=== PATIENT | male | born 1940 | race Caucasian/White ===

== ENCOUNTER → 2018-01-11 | Outpatient (CLI) | payer MEDICARE ==
--- NOTE | 2018-01-11 15:56 | US ---
EXAMINATION TYPE: US kidneys/renal and bladder DATE OF EXAM: 01/11/2018 COMPARISON: NONE CLINICAL HISTORY: R10.9 Right flank pain. EXAM MEASUREMENTS: Right Kidney: 11.5 x 4.8 x 4.8 cm Left Kidney: 15.0 x 4.8 x 5.4 cm There appears to be echogenic foci within the renal cortex could be related to some renal stones. No hydronephrosis is evident. Right Kidney: tiny echogenic foci with twinkle artifact measuring 0.2 x 0.1 x 0.3cm Left Kidney: Measures significantly larger, this may due to inferior mass seen. Vascular mass seen in ferior left kidney measuring 2.6 x 2.4 x 2.9cm. Simple cyst noted measuring 1.9 x 1.9 x 1.8cm. Bladder: some possible dependant debris IMPRESSION: 1. Findings suspicious for left 2.5 cm renal mass. Additional workup with contrast CT is recommended. 2. Possible right renal cortical stones without evidence of hydronephrosis.
== END | disposition home or self-care (01) ==
LOC: RADUSWWP 10:57
PROVIDERS: ATTEND Urology
DX: R93.422 Abnormal radiologic findings on diagnostic imaging of left kidney (principal); R93.421 Abnormal radiologic findings on diagnostic imaging of right kidney
CPT/HCPCS: 76770

== ENCOUNTER → 2018-01-22 | Outpatient (CLI) | payer MEDICARE ==
[2018-01-22 14:33] LABS: Blood Urea Nitrogen 23 mg/dL (9-20)
--- NOTE | 2018-01-22 15:38 | CT ---
EXAMINATION TYPE: CT abdomen wo/w con DATE OF EXAM: 01/22/2018 COMPARISON: Renal ultrasound January 11, 2018 HISTORY: Abnormal US. Renal mass. Original ultrasound for right flank pain. CT DLP: 2174 mGycm, Automated Exposure Control for Dose Reduction was Utilized. CONTRAST: CT scan of the abdomen is performed with oral and without and with IV Contrast, patient injected with 100 mL of Isovue M300. FINDINGS: LUNG BASES: There is suspected stent graft in the left circumflex artery axial image 1. There is seda tional coronary artery calcification RCA distribution. LIVER/GB: And central left hepatic dome there is 1.2 cm low dense lesion that shows peripheral nodula r enhancement, nonspecific too small to definitively characterize seen best axial image 17 series 6. Subcentimeter low dense lesion anteriorly left hepatic lobe series 6 image 27 is too small to charact erize. Somewhat Contracted gallbladder noted. PANCREAS: Mild to moderate generalized fat replaced atrophy of pancreas is seen. SPLEEN: No significant abnormality is seen. ADRENALS: No significant abnormality is seen. KIDNEYS: Noncontrast images show no renal calculi bilaterally. Postcontrast images show symmetric cor tical medullary uptake and excretion from both kidneys without evidence of hydronephrosis bilaterally . Corresponding to recent ultrasound there is partially exophytic heterogeneous enhancing solid mass anteriorly lower pole level left kidney measuring 5.0 x 4.1 cm axial series 10 image 43 by approximat cayla 5.5 cm craniocaudal dimension sagittal image 64. There is 1.6 cm simple appearing cyst posteriorl y mid to lower pole level left kidney axial image 41 series 10. No concerning right-sided renal mass or hydronephrosis is present. BOWEL: Oral contrast does not reach colonic level. Small hiatal hernia is seen. No suspicious small o r large bowel dilatation is noted. There is 4.0 cm mesenteric diverticulum along the second portion o f duodenum. LYMPH NODES: No greater than 1cm abdominal lymph nodes are appreciated. OSSEOUS STRUCTURES: There is moderate multilevel spurring in the visualized thoracolumbar spine. Ther e is multilevel disc space narrowing and vacuum disc phenomenon is prominent lumbosacral junction. Fa cet arthropathy lower lumbar levels is seen. OTHER: Fairly moderate calcified plaque of aorta extends into pelvic branch vessels. Slight ectasia b efore bifurcation is seen. No greater than 3 cm aneurysmal change is noted. IMPRESSION: CT findings confirm lower pole solid renal mass or neoplasm larger in size than was suspe cted on recent ultrasound.
== END | disposition home or self-care (01) ==
LOC: RADCTMAIN 13:56
PROVIDERS: ATTEND Urology
DX: N28.89 Other specified disorders of kidney and ureter (principal)
CPT/HCPCS: 82565; 84520; 74170; 36415; Q9967

== ENCOUNTER → 2018-01-28 | Outpatient (CLI) | payer MEDICARE ==
--- NOTE | 2018-01-28 17:33 | XR ---
EXAMINATION TYPE: XR chest 2V DATE OF EXAM: 01/28/2018 COMPARISON: Prior chest x-ray 11/07/2012 HISTORY: Follow up staging renal cancer TECHNIQUE: Frontal and lateral views of the chest are obtained. FINDINGS: There is no focal air space opacity, pleural effusion, or pneumothorax seen. The cardiac silhouette size is within normal limits. The osseous structures are intact. IMPRESSION: No acute cardiopulmonary process.
== END | disposition home or self-care (01) ==
LOC: RADXRMAIN 15:55
PROVIDERS: ATTEND Urology
DX: C64.9 Malignant neoplasm of unspecified kidney, except renal pelvis (principal)
CPT/HCPCS: 71046

== ENCOUNTER → 2018-02-13 | Outpatient (CLI) | payer MEDICARE ==
[2018-02-13 09:46] LABS: Basophils # (A) 0.1 k/uL (0-0.2); Basophils % (A) 1 %; Eosinophils # (A) 0.3 k/uL (0-0.7); Eosinophils % (A) 5 %; HCT 40.2 % (39.0-53.0); HGB 12.7 gm/dL (13.0-17.5); Lymphocytes % (A) 16 %; MCH 29.2 pg (25.0-35.0); MCHC 31.5 g/dL (31.0-37.0); MCV 92.7 fL (80.0-100.0); Mean Platelet Volume 6.4; Monocytes # (A) 0.6 k/uL (0-1.0); Monocytes % (A) 9 %; Neutrophils # (A) 4.3 k/uL (1.3-7.7); Neutrophils % (A) 67 %; Platelet Count 210 k/uL (150-450); RBC 4.34 m/uL (4.30-5.90); RDW 13.9 % (11.5-15.5); WBC 6.5 k/uL (3.8-10.6)
[2018-02-13 09:57] LABS: Anion Gap 11 mmol/L; Blood Urea Nitrogen 23 mg/dL (9-20); Calcium 9.4 mg/dL (8.4-10.2); Carbon Dioxide 26 mmol/L (22-30); Chloride 102 mmol/L (98-107); Glucose 132 mg/dL (74-99); Potassium 4.3 mmol/L (3.5-5.1); Sodium 139 mmol/L (137-145)
== END | disposition home or self-care (01) ==
LOC: LABPAT 09:04
PROVIDERS: ATTEND Urology
DX: Z01.818 Encounter for other preprocedural examination (principal); Z01.812 Encounter for preprocedural laboratory examination; R35.0 Frequency of micturition; E78.5 Hyperlipidemia, unspecified; D41.02 Neoplasm of uncertain behavior of left kidney; R10.9 Unspecified abdominal pain
CPT/HCPCS: 80048; 85025; 87086; 93005

== ENCOUNTER 2018-02-20 10:19 | Inpatient (IN) | payer MEDICARE ==
[2018-02-13 13:41] VITALS: BMI 31.5
--- NOTE | 2018-02-20 05:39 | P.GSHP ---
History of Present Illness H&P Date: 02/18/18 Chief Complaint: Left renal mass. The patient is a 77-year-old white male with known BPH. He has recently experienced right flank discomfort. A renal ultrasound showed tiny right renal calculi, but also showed a left renal mass. A CT scan confirmed the presence of a 5 cm left solid renal mass, suspicious for renal cell carcinoma. - Constitutional Constitutional: Denies weight loss - Gastrointestinal Gastrointestinal: Reports abdominal pain - Genitourinary (Female) Genitourinary: Reports urgency, Denies hematuria Past Medical History Past Medical History: Coronary Artery Disease (CAD), Cancer, GERD/Reflux, Hyperlipidemia, Hypertension, Prostate Disorder Additional Past Medical History / Comment(s): basal cell and melanoma skin cancer, seasonal allergies History of Any Multi-Drug Resistant Organisms: None Reported Past Surgical History: Heart Catheterization With Stent, Joint Replacement Additional Past Surgical History / Comment(s): rt hip replacement 2012, removal of basal cell and melanoma skin cancer Past Anesthesia/Blood Transfusion Reactions: No Reported Reaction Date of Last Stent Placement:: 09/09/17 Smoking Status: Former smoker - Past Family History Father Family Medical History: Cancer Additional Family Medical History / Comment(s): skin cancer Medications and Allergies Home Medications Medication Instructions Recorded Confirmed Type Aspirin [Adult Low Dose Aspirin EC] 81 mg PO HS 02/13/18 02/13/18 History Atorvastatin [Lipitor] 40 mg PO HS 02/13/18 02/13/18 History Clopidogrel Bisulfate [Plavix] 75 mg PO HS 02/13/18 02/13/18 History Finasteride [Proscar] 5 mg PO DAILY 02/13/18 02/13/18 History Glucosam/Cristofer-Msm1/C/Roly/Bosw 1 each PO DAILY 02/13/18 02/13/18 History [Glucosamine-Chondroitin Tablet] Losartan/Hydrochlorothiazide 1 each PO DAILY 02/13/18 02/13/18 History [Losartan-Hctz 50-12.5 mg Tab] Metoprolol Tartrate [Lopressor] 12.5 mg PO BID 02/13/18 02/13/18 History Omeprazole [PriLOSEC] 20 mg PO AC-BRKFST 02/13/18 02/13/18 History Tamsulosin [Flomax] 0.4 mg PO DAILY 02/13/18 02/13/18 History Vit C/E/Zn/Coppr/Lutein/Zeaxan 1 each PO DAILY 02/13/18 02/13/18 History [Preservision Areds 2 Softgel] diphenhydrAMINE [Benadryl] 25 mg PO HS 02/13/18 02/13/18 History Allergies Allergy/AdvReac Type Severity Reaction Status Date / Time No Known Allergies Allergy Verified 02/13/18 13:23 Surgical - Exam - General well developed, well nourished, no distress - Neck no masses, trachea midline lymphadenopathy: absent - Respiratory normal respiratory effort, clear to auscultation - Cardiovascular Rhythm: regular - Abdomen Abdomen: soft, non tender, no guarding, no rigid, no rebound - Genitourinary normal penis with no external lesions, testicles non-tender - Rectum Rectum: normal sphincter tone, no masses - Musculoskeletal normal gait - Psychiatric oriented to time, oriented to person, oriented to place, speech is normal, memory intact Results - Imaging CT scan - abdomen: report reviewed, image reviewed Assessment and Plan (1) Neoplasm of uncertain behavior of left kidney Status: Acute Code(s): D41.02 - NEOPLASM OF UNCERTAIN BEHAVIOR OF LEFT KIDNEY SNOMED Code(s): 09532480 Plan: Left radical nephrectomy. The rationale for the procedure was reviewed in detail with the patient, as he understands that the mass likely represents renal cell carcinoma. Referral for a laparoscopic procedure was offered, but he instead has chosen to undergo an open procedure. The anticipated perioperative course was discussed, as were potential risks. These include anesthesia, bleeding, infection, bowel injury, splenic injury, prolonged paralytic ileus, and incisional hernia. He has been cleared by Dr. Rivera, but he will continue to receive aspirin perioperatively. Plavix will be resumed as soon as it is felt to be safe postoperatively.
[~2018-02-20 10:19] MED LIST: HYDROmorphone 0.5 MG/0.5 ML SYRINGE IVP PRN; ONDANSETRON 4 MG/2 ML VIAL IVP ONE; ceFAZolin IN SWFI 2 GM/20 ML SYRINGE IVP ONE; fentaNYL (PF) 50 MCG/ML 2 ML AMP IV PRN
[2018-02-20] MEDS ORDERED: MIDAZOLAM 2 MG/2 ML VIAL ONE ×2 (10:51→12:40)
[2018-02-20] MEDS: LACTATED RINGERS 1,000 ML IV SCH ×2 (10:52→17:04)
[2018-02-20] MEDS ORDERED: LIDOCAINE 1% 20 ML VIAL (10MG/ML) FOR IV START INTRADERMA ONE (10:53)
[2018-02-20] MEDS ORDERED: MIDAZOLAM 2 MG/2 ML VIAL IV ONE (11:05)
[2018-02-20] MEDS ORDERED: NEOSTIGMINE 1 MG/ML 10 ML VIAL ONE (12:40)
[2018-02-20] MEDS ORDERED: ROCURONIUM BROMIDE 10 MG/ML 10 ML VIAL IV ONE (12:40)
[2018-02-20] MEDS ORDERED: fentaNYL (PF) 50 MCG/ML 2 ML AMP ONE (12:40)
[2018-02-20] MEDS ORDERED: LIDOCAINE 1% INJ 10MG/ML (20 ML MDV) ONE (12:40)
[2018-02-20] MEDS ORDERED: ePHEDrine SULFATE/0.9% NACL/PF 50 MG/5 ML SYRINGE IV ONE (12:40)
[2018-02-20] MEDS ORDERED: PROPOFOL 10 MG/ML 20 ML VIAL IV ONE (12:40)
[2018-02-20] MEDS ORDERED: GLYCOPYRROLATE 0.2 MG/ML 2 ML VIAL ONE (12:40)
[2018-02-20] MEDS ORDERED: SUCCINYLCHOLINE CHLORIDE 100 MG/5 ML SYR IV ONE (12:40)
[2018-02-20] MEDS ORDERED: LACTATED RINGERS 1,000 ML IV ONE ×2 (13:07→14:15)
[2018-02-20] MEDS ORDERED: NALOXONE 0.4 MG/ML 1 ML VIAL IV PRN ×2 (14:37→14:38)
--- NOTE | 2018-02-20 15:18 | P.OP ---
Date of Procedure: 02/20/18 Preoperative Diagnosis: Left renal mass Postoperative Diagnosis: Same Procedure(s) Performed: Left radical nephrectomy Anesthesia: GETA, epidural Surgeon: Osmin Avina Assistant Golf Professional #1: Vj Castaneda Estimated Blood Loss (ml): 250 IV fluids (ml): 1,700 Pathology: other (Left Kidney) Condition: stable Disposition: PACU Indications for Procedure: The patient is a 77-year-old white male with known BPH. He has recently experienced right flank discomfort. A renal ultrasound showed tiny right renal calculi, but also showed a left renal mass. A CT scan confirmed the presence of a 5 cm left solid renal mass, suspicious for renal cell carcinoma. Operative Findings: No evidence of extrarenal disease. Description of Procedure: The patient was taken to the operating room and placed in the supine position. After being given general anesthesia, the abdomen was prepped and draped sterilely. A left-sided chevron incision was made using the scalpel. The Bovie electrocautery was used to incise the subcutaneous tissues and muscular layers of the abdominal wall down to the peritoneum. The abdominal wall muscles were noted to be thin and atrophic. The peritoneum was then carefully entered, and opened the full length of the incision. The abdomen was examined, and no abnormalities were noted other than the renal mass. Specifically, there was no evidence of malignancy elsewhere within the abdomen. The Bookwalter retractor was used for exposure. The peritoneum was incised at the line of Toldt, and the left hemicolon was mobilized and the lienocolic attachments were divided. This allowed the colon to be mobilized medially, off of the kidney, exposing the lateral aspect of the aorta. The left renal vein was identified and isolated. The adrenal vein was ligated and divided. Dissection was performed along the lateral aspect of the aorta, cephalad and caudal to the left renal vein. This lymphoadipose and sympathetic tissue was clipped and divided. The single left renal artery was identified, isolated, and ligated using a 2-0 silk tie. The left renal vein was then ligated using 2-0 silk ties, proximally and distally, and a 2-0 silk suture ligature was placed proximally as well. The renal vein was then divided. The left renal artery was then likewise ligated twice proximally and once distally prior to dividing it. Dissection was then continued inferiorly, alongside the aorta, with lymphoadipose tissue clipped and divided. The posterior dissection was then performed bluntly, and the tail of Gerota's fascia was then isolated. Within it where the gonadal vein and the ureter. These were ligated distally and clipped proximally prior to dividing them. The posterior dissection was then completed, alongside the psoas muscle, leaving only the superior attachments. The decision was made to preserve the adrenal gland. Therefore, the peritoneum was incised just below the adrenal gland, and the superior attachments were clipped and divided. It should be noted that there was no evidence of adenopathy. Once all attachments were divided, the specimen was removed. The surgical field was examined for hemostasis. Some oozing was noted from the superior attachments, and these areas were identified and either clipped or cauterized, attaining excellent hemostasis. The Bookwalter retractor was removed. The abdominal contents were allowed to return to their normal location. Each individual muscle layer of the anterior abdominal wall was closed using #1 Vicryl suture in a running fashion. Hemostasis within the subcutaneous tissues was excellent. The skin was closed using dianne. A sterile gauze dressing was applied over the incision. All sponge and needle counts were correct. The patient tolerated the procedure well was taken to the recovery room in stable condition.
[2018-02-20] MEDS ORDERED: HYDROmorphone 1 MG/ML 1 ML SYRINGE IVP PRN (15:20)
[2018-02-20] MEDS ORDERED: MAG HYDROX/AL HYDROX/SIMETH 30 ML CUP PO PRN (15:20)
[2018-02-20] MEDS: ROPIVACAINE 250 MG, HYDROMORPHONE (PF) 5 MG in SODIUM CHLORIDE 0.9% 200 ML EPIDURAL PRN (16:04)
[2018-02-20] MEDS: ONDANSETRON 4 MG/2 ML VIAL IVP PRN (17:29)
[2018-02-20] MEDS: DEXTROSE 5%-0.45% NACL 1,000 ML IV SCH (18:48)
[2018-02-20] MEDS: ASPIRIN 81 MG PO SCH (21:24)
[2018-02-20] MEDS: ATORVASTATIN 40 MG TAB PO SCH (21:24)
[2018-02-20] MEDS: HEPARIN SODIUM,PORCINE 5,000 UNIT/ML 1 ML VIAL SQ SCH (21:24)
[2018-02-20] MEDS: METOPROLOL TARTRATE 12.5 MG TAB PO SCH (21:24)
[2018-02-21] MEDS: DEXTROSE 5%-0.45% NACL 1,000 ML IV SCH ×3 (03:29→16:03)
[2018-02-21] MEDS: ONDANSETRON 4 MG/2 ML VIAL IVP PRN ×2 (05:49→14:41)
[2018-02-21 07:39] LABS: Basophils % (A) 0 %; Eosinophils % (A) 0 %; HCT 36.9 % (39.0-53.0); Lymphocytes # (A) 0.4 k/uL (1.0-4.8); Lymphocytes % (A) 3 %; MCH 30.7 pg (25.0-35.0); MCHC 32.4 g/dL (31.0-37.0); MCV 94.7 fL (80.0-100.0); Mean Platelet Volume 6.5; Monocytes % (A) 7 %; Neutrophils # (A) 13.5 k/uL (1.3-7.7); Neutrophils % (A) 90 %; Platelet Count 208 k/uL (150-450); RDW 13.4 % (11.5-15.5); WBC 15.1 k/uL (3.8-10.6)
[2018-02-21] MEDS: HEPARIN SODIUM,PORCINE 5,000 UNIT/ML 1 ML VIAL SQ SCH ×2 (08:31→20:34)
[2018-02-21] MEDS: METOPROLOL TARTRATE 12.5 MG TAB PO SCH ×2 (08:31→20:34)
[2018-02-21] MEDS: TAMSULOSIN 0.4 MG CAP.ER.24H PO SCH (08:31)
[2018-02-21] MEDS: FINASTERIDE 5 MG TAB PO SCH (08:32)
[2018-02-21] MEDS: PANTOPRAZOLE 40 MG TABLET PO SCH (08:32)
[2018-02-21] MEDS: LOSARTAN-HCTZ 50-12.5 MG 1 EACH TAB PO SCH (08:32)
--- NOTE | 2018-02-21 09:39 | P.PN ---
Progress Note - Text Date: 02/21/2018 Time: 717 The patient is status post, left radical nephrectomy, postoperative day number 1 The patient has no complaints of nausea vomiting or headache. The patient does not complain of any lower extremity numbness or weakness. The epidural is running at 6 mL per hour. VAS 0-10. The epidural will be maintained and adjusted as needed.
[2018-02-21] MEDS: LACTATED RINGERS 1,000 ML IV SCH (12:30)
[2018-02-21] MEDS: diphenhydrAMINE 50 MG CAP PO PRN (13:19)
[2018-02-21] MEDS: ATORVASTATIN 40 MG TAB PO SCH (20:34)
[2018-02-21] MEDS: ASPIRIN 81 MG PO SCH (20:34)
--- NOTE | 2018-02-21 22:00 | P.PN ---
Subjective Progress Note Date: 02/21/18 Principal diagnosis: POD #1, s/p left radical nephrectomy. Patient reports nausea, mild dizziness. He denies SOB. He was recently noted to have hematuria; the urine was previously clear. Objective - Vital Signs Vital signs: Vital Signs Temp 99.0 F 02/21/18 19:55 Pulse 62 02/21/18 19:55 Resp 16 02/21/18 19:55 BP 125/67 02/21/18 19:55 Pulse Ox 96 02/21/18 19:55 Intake & Output 02/21/18 02/21/18 02/22/18 06:59 18:59 06:59 Intake Total 1600 975 Output Total 400 Balance 1200 975 Intake: Intake, IV Titration 1500 875 Amount Dextrose 5%-0.45% NaCl 1, 1500 875 000 ml @ 125 mls/hr IV . Q8H [facility] Rx#:[id number] Oral 100 100 Output: Urine 400 Other: Voiding Method Indwelling Catheter Indwelling Catheter - Constitutional General appearance: Present: cooperative, no acute distress - Gastrointestinal Gastrointestinal Comment(s): Soft, non-distended. Dressing dry and intact. - Labs CBC & Chem 7: 02/21/18 07:06 Labs: Abnormal Lab Results - Last 24 Hours (Table) 02/21/18 Range/Units 07:06 WBC 15.1 H (3.8-10.6) k/uL RBC 3.90 L (4.30-5.90) m/uL Hgb 12.0 L (13.0-17.5) gm/dL Hct 36.9 L (39.0-53.0) % Neutrophils # 13.5 H (1.3-7.7) k/uL Lymphocytes # 0.4 L (1.0-4.8) k/uL Assessment and Plan (1) Neoplasm of uncertain behavior of left kidney Current Visit: No Status: Acute Code(s): D41.02 - NEOPLASM OF UNCERTAIN BEHAVIOR OF LEFT KIDNEY SNOMED Code(s): 77055172 Plan: Patient is stable. Continue current treatment. Will irrigate Romero prn. Anticipate removal of epidural catheter and Romero in am.
[2018-02-21] MEDS: ROPIVACAINE 250 MG, HYDROMORPHONE (PF) 5 MG in SODIUM CHLORIDE 0.9% 200 ML EPIDURAL PRN (22:52)
[2018-02-22] MEDS: DEXTROSE 5%-0.45% NACL 1,000 ML IV SCH ×4 (00:34→16:58)
[2018-02-22] MEDS: diphenhydrAMINE 50 MG CAP PO PRN (01:04)
[2018-02-22 06:54] LABS: Basophils % (A) 0 %; Eosinophils % (A) 0 %; HCT 34.2 % (39.0-53.0); HGB 11.1 gm/dL (13.0-17.5); Lymphocytes # (A) 0.5 k/uL (1.0-4.8); Lymphocytes % (A) 4 %; MCH 30.7 pg (25.0-35.0); MCHC 32.6 g/dL (31.0-37.0); MCV 94.3 fL (80.0-100.0); Mean Platelet Volume 7.4; Monocytes % (A) 8 %; Neutrophils # (A) 11.6 k/uL (1.3-7.7); Neutrophils % (A) 87 %; Platelet Count 174 k/uL (150-450); RBC 3.62 m/uL (4.30-5.90); RDW 13.5 % (11.5-15.5); WBC 13.3 k/uL (3.8-10.6)
--- NOTE | 2018-02-22 08:35 | P.PN ---
Progress Note - Text 02-22-2018 845am 77 y/o M s/p Radical Nephrectomy POD 2 Solution was @ 5ml /hr VAS 0/10 no motor or sensory deficits Epidural Dc'd
[2018-02-22] MEDS: PANTOPRAZOLE 40 MG TABLET PO SCH (08:53)
[2018-02-22] MEDS: METOPROLOL TARTRATE 12.5 MG TAB PO SCH ×2 (08:53→19:59)
[2018-02-22] MEDS: TAMSULOSIN 0.4 MG CAP.ER.24H PO SCH (08:53)
[2018-02-22] MEDS: FINASTERIDE 5 MG TAB PO SCH (08:54)
[2018-02-22] MEDS: CLOPIDOGREL 75 MG TAB PO SCH (08:54)
[2018-02-22] MEDS: LOSARTAN-HCTZ 50-12.5 MG 1 EACH TAB PO SCH (08:54)
[2018-02-22] MEDS: LACTATED RINGERS 1,000 ML IV SCH (12:09)
[2018-02-22] MEDS ORDERED: HYDROcodone/APAP 5-325MG 1 EACH TAB PO PRN ×2 (14:26)
[2018-02-22] MEDS ORDERED: ACETAMINOPHEN TAB 325 MG TAB PO PRN (14:26)
[2018-02-22] MEDS: ATORVASTATIN 40 MG TAB PO SCH (19:59)
[2018-02-22] MEDS: ASPIRIN 81 MG PO SCH (20:00)
[2018-02-22] MEDS ORDERED: CALCIUM CARBONATE 500 MG CHEWABLE PO PRN (20:02)
[2018-02-23 07:20] LABS: Basophils % (A) 0 %; Eosinophils % (A) 0 %; HCT 33.5 % (39.0-53.0); HGB 11.1 gm/dL (13.0-17.5); Lymphocytes # (A) 0.3 k/uL (1.0-4.8); Lymphocytes % (A) 3 %; MCH 30.4 pg (25.0-35.0); MCHC 33.3 g/dL (31.0-37.0); MCV 91.4 fL (80.0-100.0); Mean Platelet Volume 6.6; Monocytes # (A) 0.6 k/uL (0-1.0); Monocytes % (A) 6 %; Neutrophils # (A) 9.1 k/uL (1.3-7.7); Neutrophils % (A) 89 %; Platelet Count 181 k/uL (150-450); RBC 3.66 m/uL (4.30-5.90); RDW 13.3 % (11.5-15.5); WBC 10.2 k/uL (3.8-10.6)
[2018-02-23 07:41] LABS: Calcium 8.1 mg/dL (8.4-10.2); Potassium 3.9 mmol/L (3.5-5.1)
[2018-02-23] MEDS: FINASTERIDE 5 MG TAB PO SCH (08:03)
[2018-02-23] MEDS: TAMSULOSIN 0.4 MG CAP.ER.24H PO SCH (08:03)
[2018-02-23] MEDS: LOSARTAN-HCTZ 50-12.5 MG 1 EACH TAB PO SCH (08:03)
[2018-02-23] MEDS: PANTOPRAZOLE 40 MG TABLET PO SCH (08:04)
[2018-02-23] MEDS: CLOPIDOGREL 75 MG TAB PO SCH (08:04)
[2018-02-23] MEDS: METOPROLOL TARTRATE 12.5 MG TAB PO SCH ×2 (08:04→20:07)
[2018-02-23] MEDS: DEXTROSE 5%-0.45% NACL 1,000 ML IV SCH ×3 (08:05→20:08)
[2018-02-23] MEDS: LACTATED RINGERS 1,000 ML IV SCH (10:17)
--- NOTE | 2018-02-23 11:54 | P.PN ---
Progress Note - Text Progress Note Date: 02/23/18 The patient developed urinary retention yesterday, requiring Romero catheter placement. Because of the catheter, he has not ambulated. His dizziness has resolved. He is tolerating clear liquid diet and is hungry. He has passed flatus but has not had a bowel movement. He is afebrile with stable vital signs. The incision is clean and dry. He appears to have a skin burn, resulting from tape, lateral to the flank incision. He is hoping to be discharged home later today. His IV will be saline locked, his diet will be advanced, and his Romero catheter will be connected to a leg bag. Pathologically , the tumor was confirmed to be renal cell carcinoma, confined to the kidney. This was discussed with the patient and his family, and adjuvant therapy will not be recommended.
[2018-02-23] MEDS: BACITRACIN 500 UNIT/GM OINT 28.4 GM TUBE TOPICAL SCH ×2 (12:56→20:07)
[2018-02-23 14:17] VITALS: RESP 16
[2018-02-23] MEDS: ASPIRIN 81 MG PO SCH (20:07)
[2018-02-23] MEDS: ATORVASTATIN 40 MG TAB PO SCH (20:07)
[2018-02-23] MEDS: diphenhydrAMINE 50 MG CAP PO PRN (21:36)
[2018-02-24 07:07] VITALS: BP 150/68; PULSE 75; TEMP 97.7
[2018-02-24] MEDS: DEXTROSE 5%-0.45% NACL 1,000 ML IV SCH (08:36)
[2018-02-24] MEDS: METOPROLOL TARTRATE 12.5 MG TAB PO SCH (08:47)
[2018-02-24] MEDS: FINASTERIDE 5 MG TAB PO SCH (08:47)
[2018-02-24] MEDS: CLOPIDOGREL 75 MG TAB PO SCH (08:47)
[2018-02-24] MEDS: PANTOPRAZOLE 40 MG TABLET PO SCH (08:47)
[2018-02-24] MEDS: LOSARTAN-HCTZ 50-12.5 MG 1 EACH TAB PO SCH (08:47)
[2018-02-24] MEDS: BACITRACIN 500 UNIT/GM OINT 28.4 GM TUBE TOPICAL SCH (08:51)
--- NOTE | 2018-02-24 10:01 | P.DS ---
Providers Date of admission: 02/20/18 10:19 Expected date of discharge: 02/24/18 Attending physician: Osmin Avina Primary care physician: Blayne Fuller - Discharge Diagnosis(es) (1) Renal cell carcinoma of left kidney Current Visit: Yes Status: Acute Hospital Course: On the day of admission, the patient underwent an uncomplicated left radical nephrectomy. Postoperatively, he reported some dizziness which was attributed to the epidural catheter. He also reported nausea in the early postoperative period. He remained afebrile. The epidural catheter and Romero catheter were both removed on the second postoperative day. He was unable to void, necessitating replacement of the Romero catheter. Plavix was resumed after the epidural catheter was removed. At the time of discharge, he was passing flatus and tolerating diet. He was ambulating without difficulty. The incision was clean and dry. A dressing was applied over a tape burn lateral to the surgical incision. Pathologically, the tumor was confirmed to be organ confined renal cell carcinoma ([id number]), which will not require any adjuvant therapy. Procedures: Left radical nephrectomy on 02/20/2018. Patient Condition at Discharge: Good Plan - Discharge Summary Discharge Rx Participant: Yes New Discharge Prescriptions: New Hydrocodone/Acetaminophen [Gilman 5-325] 1 - 2 each PO Q4HR PRN #6 tab PRN Reason: Pain No Action Clopidogrel Bisulfate [Plavix] 75 mg PO HS Aspirin [Adult Low Dose Aspirin EC] 81 mg PO HS Metoprolol Tartrate [Lopressor] 12.5 mg PO BID Tamsulosin [Flomax] 0.4 mg PO DAILY Losartan/Hydrochlorothiazide [Losartan-Hctz 50-12.5 mg Tab] 1 tab PO DAILY Finasteride [Proscar] 5 mg PO DAILY Atorvastatin [Lipitor] 40 mg PO HS Omeprazole [PriLOSEC] 20 mg PO AC-BRKFST diphenhydrAMINE [Benadryl] 25 mg PO HS Vit C/E/Zn/Coppr/Lutein/Zeaxan [Preservision Areds 2 Softgel] 1 cap PO DAILY Glucosam/Cristofer-Msm1/C/Roly/Bosw [Glucosamine-Chondroitin Tablet] 1 tab PO DAILY Discharge Medication List Aspirin [Adult Low Dose Aspirin EC] 81 mg PO HS 02/13/18 [History] Atorvastatin [Lipitor] 40 mg PO HS 02/13/18 [History] Clopidogrel Bisulfate [Plavix] 75 mg PO HS 02/13/18 [History] Finasteride [Proscar] 5 mg PO DAILY 02/13/18 [History] Glucosam/Cristofer-Msm1/C/Roly/Bosw [Glucosamine-Chondroitin Tablet] 1 tab PO DAILY 02/13/18 [History] Losartan/Hydrochlorothiazide [Losartan-Hctz 50-12.5 mg Tab] 1 tab PO DAILY 02/13 [History] Metoprolol Tartrate [Lopressor] 12.5 mg PO BID 02/13/18 [History] Omeprazole [PriLOSEC] 20 mg PO AC-BRKFST 02/13/18 [History] Tamsulosin [Flomax] 0.4 mg PO DAILY 02/13/18 [History] Vit C/E/Zn/Coppr/Lutein/Zeaxan [Preservision Areds 2 Softgel] 1 cap PO DAILY 10/26 [History] diphenhydrAMINE [Benadryl] 25 mg PO HS 02/13/18 [History] Hydrocodone/Acetaminophen [Gilman 5-325] 1 - 2 each PO Q4HR PRN #6 tab 02/23/18 [ Rx] Follow up Appointment(s)/Referral(s): Osmin Avina MD [STAFF PHYSICIAN] - 02/27/18 Activity/Diet/Wound Care/Special Instructions: Discharge home with Romero catheter. Provide patient with both an overnight bag and a urinary leg bag. Diet as tolerated. Okay to shower. No lifting, driving , or strenuous activity. Patient was instructed to remove his Romero catheter early in the morning February 27, and follow-up that afternoon. Discharge Disposition: HOME SELF-CARE
[2018-02-24] MEDS: TAMSULOSIN 0.4 MG CAP.ER.24H PO SCH (10:51)
== END 2018-02-24 11:52 | disposition home or self-care (01) | DRG 658 ==
LOC: 2ORMAIN 10:19 → 3SUR 15:13
PROVIDERS: ADMIT Urology; ATTEND Urology
PROC: 0TT10ZZ Resection of Left Kidney, Open Approach (ICD-10-PCS; principal; 2018-02-20 12:00)
DX: C64.2 Malignant neoplasm of left kidney, except renal pelvis (principal); E78.5 Hyperlipidemia, unspecified; I10 Essential (primary) hypertension; I25.10 Atherosclerotic heart disease of native coronary artery without angina pectoris; K21.9 Gastro-esophageal reflux disease without esophagitis; N40.1 Benign prostatic hyperplasia with lower urinary tract symptoms; R33.8 Other retention of urine; J30.2 Other seasonal allergic rhinitis; R42 Dizziness and giddiness; N20.0 Calculus of kidney; R11.0 Nausea; T50.995A Adverse effect of other drugs, medicaments and biological substances, initial encounter; Z79.82 Long term (current) use of aspirin; Z79.02 Long term (current) use of antithrombotics/antiplatelets; Z79.899 Other long term (current) drug therapy; Z96.641 Presence of right artificial hip joint; Z87.891 Personal history of nicotine dependence; Z85.820 Personal history of malignant melanoma of skin; Z85.828 Personal history of other malignant neoplasm of skin; Z95.5 Presence of coronary angioplasty implant and graft; Z80.8 Family history of malignant neoplasm of other organs or systems; Y92.239 Unspecified place in hospital as the place of occurrence of the external cause
CPT/HCPCS: 36415; 80048; 85025; 86850; 86900; 86901; 88307

== ENCOUNTER → 2018-02-27 | Outpatient (CLI) | payer MEDICARE ==
--- NOTE | 2018-02-27 17:19 | US ---
EXAMINATION TYPE: US venous doppler duplex LE RT DATE OF EXAM: 02/27/2018 4:23 PM COMPARISON: NONE CLINICAL HISTORY: C64.9 Renal cancer; right leg swelling. Right leg swelling, history of renal CA SIDE PERFORMED: Right TECHNIQUE: The lower extremity deep venous system is examined utilizing real time linear array sonog toro with graded compression, doppler sonography and color-flow sonography. VESSELS IMAGED: External Iliac Vein (EIV) Common Femoral Vein Deep Femoral Vein Greater Saphenous Vein * Femoral Vein Popliteal Vein Small Saphenous Vein * Proximal Calf Veins (* superficial vessels) Right Leg: Appears negative for DVT IMPRESSION: No evidence of deep venous thrombosis in the right leg.
== END | disposition home or self-care (01) ==
LOC: RADUSWWP 16:16
PROVIDERS: ATTEND Urology
DX: R60.0 Localized edema (principal); C64.9 Malignant neoplasm of unspecified kidney, except renal pelvis

== ENCOUNTER → 2018-11-27 | Outpatient (CLI) | payer MEDICARE ==
--- NOTE | 2018-11-27 15:57 | XR ---
EXAMINATION TYPE: XR chest 2V DATE OF EXAM: 11/27/2018 COMPARISON: Prior chest x-ray 01/28/2018 HISTORY: Renal carcinoma staging TECHNIQUE: Frontal and lateral views of the chest are obtained. FINDINGS: There is no focal air space opacity, pleural effusion, or pneumothorax seen. The cardiac silhouette size is stable, borderline enlarged, patient is rotated. The osseous structures are inta ct. IMPRESSION: No acute cardiopulmonary process.
== END | disposition home or self-care (01) ==
LOC: RADXRMAIN 10:31
PROVIDERS: ATTEND Urology
DX: D49.519 Neoplasm of unspecified behavior of unspecified kidney (principal)
CPT/HCPCS: 71046

== ENCOUNTER → 2019-01-30 | Outpatient (CLI) | payer MEDICARE ==
[2019-01-30 10:31] LABS: Albumin 3.9 g/dL (3.5-5.0); Calcium 9.2 mg/dL (8.4-10.2); Potassium 4.6 mmol/L (3.5-5.1); Total Bilirubin 0.5 mg/dL (0.2-1.3); Total Protein 6.4 g/dL (6.3-8.2)
--- NOTE | 2019-01-30 14:15 | XR ---
EXAMINATION TYPE: XR chest 2V DATE OF EXAM: 01/30/2019 COMPARISON: Prior chest x-ray 11/27/2018 HISTORY: Left kidney cancer, C 64.2 TECHNIQUE: Frontal and lateral views of the chest are obtained. FINDINGS: The patient is rotated. There is no focal air space opacity, pleural effusion, or pneumotho rax seen. The cardiac silhouette size is stable accounting for differences in technique. There are coronary artery calcifications. The osseous structures are intact. IMPRESSION: No acute cardiopulmonary process. Coronary artery disease
--- NOTE | 2019-01-30 14:36 | CT ---
EXAMINATION TYPE: CT abdomen wo con DATE OF EXAM: 01/30/2019 HISTORY: Left kidney cancer CT DLP: 756.40 mGycm. Automated Exposure Control for Dose Reduction was Utilized. TECHNIQUE: CT scan of the abdomen is performed with oral but without IV contrast. COMPARISON: CT abdomen January 12, 2018 FINDINGS: Within the limitations of a non-contrast study, the following observations are made. LUNG BASES: No significant abnormality is appreciated. LIVER/GB: No significant abnormality is appreciated. PANCREAS: Without generalized fat replaced atrophy. SPLEEN: No significant abnormality is seen. ADRENALS: Left adrenal gland remains present. KIDNEYS: Left-sided nephrectomy changes are now present. No suspicious residual solid mass. BOWEL: There is 2.6 cm duodenal diverticulum medial second portion coronal image 45 redemonstrated. L eft-sided colonic diverticulosis redemonstrated. LYMPH NODES: No greater than 1cm abdominal lymph nodes are appreciated. OSSEOUS STRUCTURES: Moderate multilevel spurring of the spine. There is a hemangioma involving the ri ght aspect T9 vertebra. OTHER: Mild to moderate calcified plaque of the aorta extends into branch vessels. Slight ectasia red emonstrated without greater than 3.0 cm aneurysm. IMPRESSION: Interval left-sided total nephrectomy. No new suspicious mass or adenopathy.
== END | disposition home or self-care (01) ==
LOC: RADCTMAIN 09:43
PROVIDERS: ATTEND Urology
DX: I25.10 Atherosclerotic heart disease of native coronary artery without angina pectoris (principal); C64.2 Malignant neoplasm of left kidney, except renal pelvis; Z90.5 Acquired absence of kidney
CPT/HCPCS: 36415; 71046; 74150; 80053

== ENCOUNTER → 2019-10-07 | Outpatient (CLI) | payer MEDICARE ==
--- NOTE | 2019-10-07 08:50 | XR ---
EXAMINATION TYPE: XR chest 2V DATE OF EXAM: 10/07/2019 COMPARISON: 01/30/2019 HISTORY: 78-year-old male C64.2, E78.2 TECHNIQUE: Frontal and lateral views FINDINGS: Heart normal size. Mild elongation thoracic aorta. Mild strandy atelectasis lower lungs. No consolida tion or pleural effusion. IMPRESSION: Some strandy lower lung atelectasis.
[2019-10-07 16:20] LABS: Chol/HDL Ratio 3.63; LDL Cholesterol,Calculated 76.2 mg/dL (0.0-131.0); VLDL Calculation 31.8 mg/dL (5.00-40.00)
== END | disposition home or self-care (01) ==
LOC: LABWHC1 08:27
PROVIDERS: ATTEND Internal Medicine Interventional Cardiology
DX: J98.11 Atelectasis (principal); C64.2 Malignant neoplasm of left kidney, except renal pelvis; E78.2 Mixed hyperlipidemia
CPT/HCPCS: 36415; 71046; 80061; 84450; 84460

== ENCOUNTER → 2020-01-15 | Outpatient (CLI) | payer MEDICARE ==
[2020-01-15 09:09] LABS: Albumin 4.1 g/dL (3.5-5.0); Calcium 8.9 mg/dL (8.4-10.2); Potassium 4.9 mmol/L (3.5-5.1); Total Bilirubin 0.6 mg/dL (0.2-1.3); Total Protein 6.4 g/dL (6.3-8.2)
--- NOTE | 2020-01-15 13:00 | CT ---
EXAMINATION TYPE: CT abdomen wo con DATE OF EXAM: 01/15/2020 COMPARISON: CT abdomen 01/30/2019 HISTORY: Left renal cancer status post left nephrectomy and CT DLP: 615 mGycm Automated exposure control for dose reduction was used. TECHNIQUE: Helical acquisition of images was performed from the lung bases through the top of iliac crest to include entire abdomen. CONTRAST: Performed with Oral Contrast and without IV contrast. FINDINGS: LUNG BASES: Lung bases are clear. Heart size normal. Calcified coronary artery disease. No pericardia l or pleural effusion. LIVER/GB: Liver is normal in attenuation and size. No intrahepatic or extrahepatic biliary ductal dil atation. PANCREAS: Fatty atrophy. No prepancreatic stranding. SPLEEN: Not enlarged. ADRENALS: No adrenal nodule bilaterally. KIDNEYS: Status post left nephrectomy. No evidence of abnormal soft tissue within the nephrectomy bed . Right kidney demonstrates no evidence of nephrolithiasis or hydronephrosis. BOWEL: No evidence of bowel obstruction or inflammation of the visualized bowel. Redemonstrated larg e duodenal diverticulum. Colonic diverticulosis. Normal appendix. LYMPH NODES: No lymphadenopathy. PERITONEUM: Normal. VASCULAR: Redemonstrated infrarenal abdominal aortic ectasia measures up to 2.5 cm. Moderate calcifie d atherosclerotic disease. MUSCULOSKELETAL: No aggressive osseous destructive lesion. Osteoporosis. Degenerative changes of the spine. IMPRESSION: Status post left nephrectomy. No evidence of recurrent or metastatic renal cancer of the abdomen with in limits of noncontrast examination.
== END | disposition home or self-care (01) ==
LOC: RADCTMAIN 07:58
PROVIDERS: ATTEND Urology
DX: C64.2 Malignant neoplasm of left kidney, except renal pelvis (principal); Z90.5 Acquired absence of kidney
CPT/HCPCS: 36415; 74150; 80053

== ENCOUNTER → 2020-10-22 | Outpatient (CLI) | payer MEDICARE ==
--- NOTE | 2020-10-22 17:03 | XR ---
EXAMINATION TYPE: XR chest 2V DATE OF EXAM: 10/22/2020 COMPARISON: Chest x-ray 10/07/2019 HISTORY: D 49.4 TECHNIQUE: Frontal and lateral views of the chest are obtained. FINDINGS: There is no focal air space opacity, pleural effusion, or pneumothorax seen. The cardiac silhouette size is within normal limits. The osseous structures are intact, there is multilevel spo ndylosis noted in the visualized spine. Coronary artery calcifications are present.. IMPRESSION: No acute cardiopulmonary process.
[2020-10-22 19:27] LABS: African American GFR (CKD) 54.2 (60.0-200.0); Albumin/Globulin Ratio 2.35 (1.60-3.17); Anion Gap 7.9 mmol/L (4.00-12.00); BUN/Creat Ratio 20.71 Ratio (12.00-20.00); Calcium 8.8 mg/dL (8.7-10.3); Carbon Dioxide 29.1 mmol/L (21.6-31.8); Globulin 1.7 g/dL (1.6-3.3); Non-African American GFR(CKD) 46.8 (60.0-200.0); Potassium 4.3 mmol/L (3.5-5.5); Total Bilirubin 0.5 mg/dL (0.2-1.2); Total Protein 5.7 g/dL (6.2-8.2)
== END | disposition home or self-care (01) ==
LOC: LABWHC1 11:13
PROVIDERS: ATTEND Urology
DX: C64.2 Malignant neoplasm of left kidney, except renal pelvis (principal); D49.4 Neoplasm of unspecified behavior of bladder
CPT/HCPCS: 36415; 71046; 80053

== ENCOUNTER 2021-03-14 07:49 | Observation (INO) | payer MEDICARE ==
[2021-03-14] MEDS ORDERED: NITROGLYCERIN OINT 1 INCH/GM PACKET TOPICAL STA (08:21)
[2021-03-14] MEDS ORDERED: ASPIRIN 81 MG PO STA (08:21)
--- NOTE | 2021-03-14 08:33 | ED ---
General Adult HPI - General Chief complaint: Chest Pain Stated complaint: SHOULDER,BACK PAIN Time Seen by Provider: 03/14/21 07:50 Source: patient, RN notes reviewed, old records reviewed Limitations: physical limitation - History of Present Illness Initial comments: This is an 80-year-old who presents to the emergency department complaining of left sided upper chest and shoulder pain. Patient states it radiates down his arm just a little bit. Patient states it started at 2:00 in the morning. Patient denies any difficulty breathing or shortness of breath. Patient states he was mildly nauseated initially but since that is gone away. Patient denies any diaphoretic episodes. Patient states the pain is been constant and is continuing currently. Patient states movement does not seem to affect the pain at all. Patient denies any recent fever chills or cough. Patient has a cardiac history with 2 stents placed he also has high blood pressure and high cholesterol. - Related Data Home Medications Medication Instructions Recorded Confirmed Aspirin [Adult Low Dose Aspirin EC] 81 mg PO HS 02/13/18 03/14/21 Finasteride [Proscar] 5 mg PO DAILY 02/13/18 03/14/21 Glucosam/Cristofer-Msm1/C/Roly/Bosw 1 tab PO BID 02/13/18 03/14/21 [Glucosamine-Chondroitin Tablet] Losartan/Hydrochlorothiazide 1 tab PO DAILY 02/13/18 03/14/21 [Losartan-Hctz 50-12.5 mg Tab] Omeprazole [PriLOSEC] 20 mg PO DAILY 02/13/18 03/14/21 Tamsulosin [Flomax] 0.4 mg PO DAILY 02/13/18 03/14/21 Vit C/E/Zn/Coppr/Lutein/Zeaxan 1 cap PO DAILY 02/13/18 03/14/21 [Preservision Areds 2 Softgel] diphenhydrAMINE [Benadryl] 25 mg PO HS PRN 02/13/18 03/14/21 Atorvastatin Calcium [Lipitor] 80 mg PO HS 03/14/21 03/14/21 Fluticasone Nasal [place] [Flonase 1 spray EA NOSTRIL HS 03/14/21 03/14/21 Nasal [place]] Isosorbide Mononitrate ER [Imdur] 30 mg PO HS 03/14/21 03/14/21 Metoprolol Succinate (ER) [Toprol 25 mg PO DAILY 03/14/21 03/14/21 Xl] Tiotropium 18 Mcg/Puff [Spiriva] 1 puff INHALATION RT-DAILY 03/14/21 03/14/21 Allergies Allergy/AdvReac Type Severity Reaction Status Date / Time No Known Allergies Allergy Verified 03/14/21 09:36 Review of Systems ROS Statement: Those systems with pertinent positive or pertinent negative responses have been documented in the HPI. ROS Other: All systems not noted in ROS Statement are negative. Past Medical History Past Medical History: Coronary Artery Disease (CAD), Cancer, GERD/Reflux, Hyperlipidemia, Hypertension, Prostate Disorder Additional Past Medical History / Comment(s): basal cell and melanoma skin cance r, seasonal allergies, malignant left kidney History of Any Multi-Drug Resistant Organisms: None Reported Past Surgical History: Heart Catheterization With Stent, Joint Replacement Additional Past Surgical History / Comment(s): rt hip replacement 2012, removal of basal cell and melanoma skin cancer, left kidney removed for malignancy Past Anesthesia/Blood Transfusion Reactions: No Reported Reaction Date of Last Stent Placement:: 09/09/17 Past Psychological History: No Psychological Hx Reported Smoking Status: Former smoker Past Alcohol Use History: Occasional Past Drug Use History: None Reported - Past Family History Father Family Medical History: Cancer Additional Family Medical History / Comment(s): skin cancer General Exam - General Exam Comments Initial Comments: GENERAL: Patient is well-developed and well-nourished. Patient is nontoxic and well- hydrated and is in mild distress. ENT: Neck is soft and supple. No significant lymphadenopathy is noted. Oropharynx is clear. Moist mucous membranes. Neck has full range of motion without eliciting any pain. EYES: The sclera were anicteric and conjunctiva were pink and moist. Extraocular movements were intact and pupils were equal round and reactive to light. Eyelids were unremarkable. PULMONARY: Unlabored respirations. Good breath sounds bilaterally. No audible rales rhonchi or wheezing was noted. CARDIOVASCULAR: There is a regular rate and rhythm without any murmurs gallops or rubs. ABDOMEN: Soft and nontender with normal bowel sounds. SKIN: Skin is clear with no lesions or rashes and otherwise unremarkable. NEUROLOGIC: Patient is alert and oriented x3. Cranial nerves II through XII are grossly intact. Motor and sensory are also intact. Normal speech, volume and content. Symmetrical smile. MUSCULOSKELETAL: Normal extremities with adequate strength and full range of motion. LYMPHATICS: No significant lymphadenopathy is noted PSYCHIATRIC: Normal psychiatric evaluation. Limitations: physical limitation Course Vital Signs 03/14/21 03/14/21 07:50 08:47 Temperature 97.7 F Pulse Rate 65 62 Respiratory 18 18 Rate Blood Pressure 175/88 143/78 O2 Sat by Pulse 98 93 L Oximetry Medical Decision Making - Medical Decision Making EKG shows sinus rhythm at 63 bpm HI interval is 220 QRS is 168 QT interval 488 QTC is 499. Patient's EKG shows left bundle branch block. Patient states his chest pain has improved since been emergency department. Chest x-ray shows no acute abnormality. [facility] agreed to admit the patient to the patient I consult cardiology. - Lab Data Result diagrams: 03/14/21 08:25 03/14/21 08:25 Lab Results 03/14/21 03/14/21 03/14/21 Range/Units 08:25 08:25 08:25 WBC 9.5 (3.8-10.6) k/uL RBC 3.95 L (4.30-5.90) m/uL Hgb 12.5 L (13.0-17.5) gm/dL Hct 37.6 L (39.0-53.0) % MCV 95.2 (80.0-100.0) fL MCH 31.7 (25.0-35.0) pg MCHC 33.4 (31.0-37.0) g/dL RDW 12.9 (11.5-15.5) % Plt Count 196 (150-450) k/uL MPV 6.9 Neutrophils % 81 % Lymphocytes % 9 % Monocytes % 5 % Eosinophils % 3 % Basophils % 1 % Neutrophils # 7.7 (1.3-7.7) k/uL Lymphocytes # 0.8 L (1.0-4.8) k/uL Monocytes # 0.5 (0-1.0) k/uL Eosinophils # 0.3 (0-0.7) k/uL Basophils # 0.1 (0-0.2) k/uL PT 10.0 (9.0-12.0) sec INR 0.9 (<1.2) APTT 21.5 L (22.0-30.0) sec Sodium 135 L (137-145) mmol/L Potassium 4.7 (3.5-5.1) mmol/L Chloride 105 (98-107) mmol/L Carbon Dioxide 22 (22-30) mmol/L Anion Gap 8 mmol/L BUN 33 H (9-20) mg/dL Creatinine 1.48 H (0.66-1.25) mg/dL Est GFR (CKD-EPI)AfAm 50 (>60 ml/min/1.73 sqM) Est GFR (CKD-EPI)NonAf 44 (>60 ml/min/1.73 sqM) Glucose 169 H (74-99) mg/dL Calcium 8.9 (8.4-10.2) mg/dL Magnesium 1.9 (1.6-2.3) mg/dL Total Bilirubin 0.8 (0.2-1.3) mg/dL AST 36 (17-59) U/L ALT 28 (4-49) U/L Alkaline Phosphatase 65 (38-126) U/L Troponin I (0.000-0.034) ng/mL Total Protein 6.3 (6.3-8.2) g/dL Albumin 3.7 (3.5-5.0) g/dL 03/14/21 Range/Units 08:25 WBC (3.8-10.6) k/uL RBC (4.30-5.90) m/uL Hgb (13.0-17.5) gm/dL Hct (39.0-53.0) % MCV (80.0-100.0) fL MCH (25.0-35.0) pg MCHC (31.0-37.0) g/dL RDW (11.5-15.5) % Plt Count (150-450) k/uL MPV Neutrophils % % Lymphocytes % % Monocytes % % Eosinophils % % Basophils % % Neutrophils # (1.3-7.7) k/uL Lymphocytes # (1.0-4.8) k/uL Monocytes # (0-1.0) k/uL Eosinophils # (0-0.7) k/uL Basophils # (0-0.2) k/uL PT (9.0-12.0) sec INR (<1.2) APTT (22.0-30.0) sec Sodium (137-145) mmol/L Potassium (3.5-5.1) mmol/L Chloride (98-107) mmol/L Carbon Dioxide (22-30) mmol/L Anion Gap mmol/L BUN (9-20) mg/dL Creatinine (0.66-1.25) mg/dL Est GFR (CKD-EPI)AfAm (>60 ml/min/1.73 sqM) Est GFR (CKD-EPI)NonAf (>60 ml/min/1.73 sqM) Glucose (74-99) mg/dL Calcium (8.4-10.2) mg/dL Magnesium (1.6-2.3) mg/dL Total Bilirubin (0.2-1.3) mg/dL AST (17-59) U/L ALT (4-49) U/L Alkaline Phosphatase (38-126) U/L Troponin I <0.012 (0.000-0.034) ng/mL Total Protein (6.3-8.2) g/dL Albumin (3.5-5.0) g/dL Disposition Clinical Impression: Chest pain Disposition: ADMITTED IP TO THIS HOSP Referrals: Blayne Fuller DO [Primary Care Provider] - 1-2 days Time of Disposition: 10:36
[2021-03-14 08:44] LABS: Basophils # (A) 0.1 k/uL (0-0.2); Basophils % (A) 1 %; Eosinophils # (A) 0.3 k/uL (0-0.7); Eosinophils % (A) 3 %; HCT 37.6 % (39.0-53.0); HGB 12.5 gm/dL (13.0-17.5); Lymphocytes # (A) 0.8 k/uL (1.0-4.8); Lymphocytes % (A) 9 %; MCH 31.7 pg (25.0-35.0); MCHC 33.4 g/dL (31.0-37.0); MCV 95.2 fL (80.0-100.0); Mean Platelet Volume 6.9; Monocytes # (A) 0.5 k/uL (0-1.0); Monocytes % (A) 5 %; Neutrophils # (A) 7.7 k/uL (1.3-7.7); Neutrophils % (A) 81 %; Platelet Count 196 k/uL (150-450); RBC 3.95 m/uL (4.30-5.90); RDW 12.9 % (11.5-15.5); WBC 9.5 k/uL (3.8-10.6)
[2021-03-14 08:57] LABS: Albumin 3.7 g/dL (3.5-5.0); Calcium 8.9 mg/dL (8.4-10.2); Magnesium 1.9 mg/dL (1.6-2.3); Total Bilirubin 0.8 mg/dL (0.2-1.3); Total Protein 6.3 g/dL (6.3-8.2)
[2021-03-14 08:58] LABS: Potassium 4.7 mmol/L (3.5-5.1)
[2021-03-14 09:09] LABS: INR 0.9 (<1.2)
--- NOTE | 2021-03-14 09:13 | XR ---
EXAMINATION TYPE: XR chest 2V DATE OF EXAM: 03/14/2021 COMPARISON: Chest x-ray October 22, 2020 HISTORY: Chest pain. TECHNIQUE: Frontal and lateral views of the chest are obtained. FINDINGS: There is mild chronic parenchymal change without suspicious focal air space opacity, pleural effusion, or pneumothorax seen. The cardiac silhouette size is stab le and mildly enlarged. Overlying EKG leads noted on current study. Lateral view there is coronary st ent visualized. The osseous structures are intact. IMPRESSION: Chronic changes and mild cardiomegaly without acute pulmonary process.
[2021-03-14 09:23] LABS: Partial Thromboplastin Time 21.5 sec (22.0-30.0)
[2021-03-14] MEDS ORDERED: NITROGLYCERIN SL TABS 0.4 MG TAB SUBLINGUAL PRN (10:36)
[2021-03-14] MEDS: NITROGLYCERIN OINT 1 INCH/GM PACKET TOPICAL SCH ×2 (14:45→20:29)
[2021-03-14] MEDS: ACETAMINOPHEN TAB 325 MG TAB PO PRN (15:30)
[2021-03-14] MEDS ORDERED: FAMOTIDINE 20 MG/2 ML VIAL IV SCH (21:00)
[2021-03-14] MEDS ORDERED: ATORVASTATIN 80 MG TAB PO SCH (21:00)
[2021-03-14] MEDS ORDERED: diphenhydrAMINE 25 MG CAP PO PRN (21:00)
[2021-03-14] MEDS ORDERED: ISOSORBIDE MONONITRATE ER 30 MG TAB.ER.24H PO SCH (21:00)
[2021-03-14] MEDS: HEPARIN SODIUM,PORCINE/PF 5,000 UNIT/0.5 ML SYRINGE SQ SCH (21:03)
[2021-03-15] MEDS: ACETAMINOPHEN TAB 325 MG TAB PO PRN (00:04)
[2021-03-15] MEDS: NITROGLYCERIN OINT 1 INCH/GM PACKET TOPICAL SCH ×3 (00:12→12:51)
--- NOTE | 2021-03-15 03:43 | XR ---
EXAMINATION TYPE: XR cervical spine limited DATE OF EXAM: 03/14/2021 COMPARISON: NONE HISTORY: Neck pain TECHNIQUE: 4 views FINDINGS: Cervical vertebra have normal alignment. There is some degenerative mild disc space narrowi ng at C4-5 and C5-6 where there is mild spurring. Posterior elements are intact. There are no cervica l ribs. Atlantoaxial facet joint is normal. IMPRESSION: Mild spondylotic changes. No fracture.
[2021-03-15 07:01] VITALS: BP 168/71; PULSE 65; RESP 18; TEMP 98.2
[2021-03-15] MEDS ORDERED: ASPIRIN 325 MG TAB PO SCH (09:00)
[2021-03-15] MEDS ORDERED: METOPROLOL SUCCINATE (ER) 25 MG TAB.ER.24H PO SCH (09:00)
[2021-03-15] MEDS ORDERED: FINASTERIDE 5 MG TAB PO SCH (09:00)
[2021-03-15] MEDS ORDERED: FAMOTIDINE 20 MG/2 ML VIAL IV SCH (09:00)
[2021-03-15] MEDS ORDERED: TAMSULOSIN 0.4 MG CAP.ER.24H PO SCH (09:00)
[2021-03-15] MEDS ORDERED: ASPIRIN 81 MG PO SCH (09:00)
[2021-03-15] MEDS ORDERED: LOSARTAN-HCTZ 50-12.5 MG 1 EACH TAB PO SCH (09:00)
--- NOTE | 2021-03-15 09:01 | P.CRDCN ---
History of Present Illness History of present illness: HISTORY OF PRESENTING ILLNESS Patient is a pleasant 80-year-old male with history of coronary artery disease status post stenting approximate 4 years ago, GERD, hypertension, BPH, kidney cancer status post nephrectomy, CKD who presents secondary to episode of neck pain radiating down into his shoulder and arm. Patient admits that he had been sleeping in a chair which was abnormal for him and the next day started having pain in his neck going down into his shoulder and arm. Patient was concerned and therefore presented to emergency department. He admits that after a gentle neck massage the pain slowly began to resolve however. Patient denies any associated shortness breath, nausea, diaphoresis. He did have prior stenting and his symptoms at that time were somewhat atypical "just not feeling well" however denies any shoulder pain with that episode. Currently he denies any c hest pain or shoulder pain. He had last stress test proximally 2-3 months [address] Rivera follow-up office visit on Sunday. EKG shows left bundle branch which is chronic, troponins negative 3. REVIEW OF SYSTEMS At the time of my exam: CONSTITUTIONAL: Denies fever or chills. CARDIOVASCULAR: Denies chest pain, shortness of breath, orthopnea, PND or palpitations. RESPIRATORY: Denies cough. GASTROINTESTINAL: Denies abdominal pain, diarrhea, constipation, nausea or vomiting. MUSCULOSKELETAL: Denies myalgias. NEUROLOGIC: Denies numbness, tingling or weakness. ENDOCRINE: Denies fatigue, weight change, polydipsia or polyurina. GENITOURINARY: Denies burning, hematuria or urgency with micturation. HEMATOLOGIC: Denies history of anemia or bleeding. PHYSICAL EXAMINATION Vital signs reviewed. CONSTITUTIONAL: No apparent distress. HEENT: Head is normocephalic. Pupils are equal, round. Sclerae anicteric. Mucous membranes of the mouth are moist. No JVD. No carotid bruit. CHEST EXAMINATION: Lungs are clear to auscultation. No chest wall tenderness is noted on palpation or with deep breathing. HEART EXAMINATION: Regular rate and rhythm. S1, S2 heard. No murmurs, gallops or rub. ABDOMEN: Soft, nontender. Positive bowel sounds. EXTREMITIES: 2+ peripheral pulses, no lower extremity edema and no calf tenderness. NEUROLOGIC EXAMINATION: Patient is awake, alert and oriented x3. ASSESSMENT 1. Atypical chest, shoulder pain appears musculoskeletal improved with massage. Does not appear anginal in nature 2. Coronary artery disease with history of PCI 3. Hypertension, currently elevated 4. Hyperlipidemia 5. Chronic kidney disease 6. Status post nephrectomy PLAN Patient's chest pain, shoulder pain appears atypical and improved with massage. Troponins negative 3 EKG with left bundle branch block. A salazar currently shoulder/chest pain-free. He did have recent negative stress test. We will check 2-D echo and as long as no significant change patient stable for discharge home from a cardiology standpoint. Follow-up in the office on Sunday as scheduled. Past Medical History Past Medical History: Coronary Artery Disease (CAD), Cancer, GERD/Reflux, Hyperlipidemia, Hypertension, Prostate Disorder Additional Past Medical History / Comment(s): basal cell and melanoma skin cancer, seasonal allergies, malignant left kidney History of Any Multi-Drug Resistant Organisms: None Reported Past Surgical History: Heart Catheterization With Stent, Joint Replacement Additional Past Surgical History / Comment(s): rt hip replacement 2012, removal of basal cell and melanoma skin cancer, left kidney removed for malignancy, 2 cardiac stents 2016 Past Anesthesia/Blood Transfusion Reactions: No Reported Reaction Date of Last Stent Placement:: 09/09/17 Past Psychological History: No Psychological Hx Reported Smoking Status: Former smoker Past Alcohol Use History: Occasional Additional Past Alcohol Use History / Comment(s): quit 1987 smoked 30 years 1- 2ppd Past Drug Use History: None Reported - Past Family History Father Family Medical History: Cancer Additional Family Medical History / Comment(s): skin cancer Medications and Allergies Home Medications Medication Instructions Recorded Confirmed Type Aspirin [Adult Low Dose Aspirin EC] 81 mg PO HS 02/13/18 03/14/21 History Finasteride [Proscar] 5 mg PO DAILY 02/13/18 03/14/21 History Glucosam/Cristofer-Msm1/C/Roly/Bosw 1 tab PO BID 02/13/18 03/14/21 History [Glucosamine-Chondroitin Tablet] Losartan/Hydrochlorothiazide 1 tab PO DAILY 02/13/18 03/14/21 History [Losartan-Hctz 50-12.5 mg Tab] Omeprazole [PriLOSEC] 20 mg PO DAILY 02/13/18 03/14/21 History Tamsulosin [Flomax] 0.4 mg PO DAILY 02/13/18 03/14/21 History Vit C/E/Zn/Coppr/Lutein/Zeaxan 1 cap PO DAILY 02/13/18 03/14/21 History [Preservision Areds 2 Softgel] diphenhydrAMINE [Benadryl] 25 mg PO HS PRN 02/13/18 03/14/21 History Atorvastatin Calcium [Lipitor] 80 mg PO HS 03/14/21 03/14/21 History Fluticasone Nasal [place] [Flonase 1 spray EA NOSTRIL HS 03/14/21 03/14/21 History Nasal [place]] Isosorbide Mononitrate ER [Imdur] 30 mg PO HS 03/14/21 03/14/21 History Metoprolol Succinate (ER) [Toprol 25 mg PO DAILY 03/14/21 03/14/21 History Xl] Tiotropium 18 Mcg/Puff [Spiriva] 1 puff INHALATION RT-DAILY 03/14/21 03/14/21 History Allergies Allergy/AdvReac Type Severity Reaction Status Date / Time No Known Allergies Allergy Verified 03/14/21 09:36 Physical Exam Vitals: Vital Signs Temp Pulse Pulse Resp BP BP Pulse Ox 03/15/21 07:00 98.2 F 65 18 168/71 95 03/15/21 01:55 98.3 F 66 16 153/81 97 03/15/21 00:10 149/82 03/14/21 20:43 97.7 F 70 16 170/83 94 L 03/14/21 16:26 97.8 F 81 16 131/75 95 03/14/21 12:20 98 03/14/21 12:08 97.6 F 67 16 152/78 95 03/14/21 11:23 97.7 F 68 18 141/78 94 L 03/14/21 11:21 68 18 141/78 94 L Intake and Output 03/14/21 03/15/21 03/15/21 22:59 06:59 14:59 Intake Total 540 Balance 540 Intake: Oral 540 Other: Voiding Method Toilet Toilet Toilet # Voids 1 Results 03/14/21 08:25 03/14/21 08:25 Cardiac Enzymes 03/14/21 03/14/21 03/14/21 Range/Units 08:25 08:25 11:03 AST 36 (17-59) U/L Troponin I <0.012 <0.012 (0.000-0.034) ng/mL 03/14/21 Range/Units 15:03 AST (17-59) U/L Troponin I <0.012 (0.000-0.034) ng/mL Coagulation 03/14/21 Range/Units 08:25 PT 10.0 (9.0-12.0) sec APTT 21.5 L (22.0-30.0) sec Comprehensive Metabolic Panel 03/14/21 Range/Units 08:25 Sodium 135 L (137-145) mmol/L Potassium 4.7 (3.5-5.1) mmol/L Chloride 105 (98-107) mmol/L Carbon Dioxide 22 (22-30) mmol/L BUN 33 H (9-20) mg/dL Creatinine 1.48 H (0.66-1.25) mg/dL Glucose 169 H (74-99) mg/dL Calcium 8.9 (8.4-10.2) mg/dL AST 36 (17-59) U/L ALT 28 (4-49) U/L Alkaline Phosphatase 65 (38-126) U/L Total Protein 6.3 (6.3-8.2) g/dL Albumin 3.7 (3.5-5.0) g/dL Current Medications Generic Name Dose Route Start Last Admin Trade Name Freq PRN Reason Stop Dose Admin Acetaminophen 650 mg 03/14/21 15:11 03/15/21 00:04 Acetaminophen Tab 325 Mg Tab PO 650 mg Q4HR PRN Administration Fever and/ or Pain Aspirin 81 mg 03/15/21 09:00 Aspirin 81 Mg PO DAILY [facility] Atorvastatin Calcium 80 mg 03/14/21 21:00 03/14/21 21:02 Atorvastatin 80 Mg Tab PO 80 mg HS ANGELA Administration Diphenhydramine HCl 25 mg 03/14/21 21:00 03/14/21 21:02 Diphenhydramine 25 Mg Cap PO 25 mg HS PRN Administration SLEEP Famotidine 20 mg 03/15/21 09:00 Famotidine 20 Mg/2 Ml Vial IV DAILY [facility] Finasteride 5 mg 03/15/21 09:00 Finasteride 5 Mg Tab PO DAILY [facility] HCTZ/Losartan Potassium 1 each 03/15/21 09:00 Losartan-Hctz 50-12.5 Mg 1 Each Tab PO DAILY [facility] Heparin Sodium (Porcine) 5,000 unit 03/14/21 21:00 03/14/21 21:03 Heparin Sodium,Porcine/Pf 5,000 Unit/0.5 Ml Syringe SQ Not Given Q12HR ANGELA Isosorbide Mononitrate 30 mg 03/14/21 21:00 03/14/21 21:02 Isosorbide Mononitrate Er 30 Mg Tab.Er.24h PO 30 mg HS ANGELA Administration Metoprolol Succinate 25 mg 03/15/21 09:00 Metoprolol Succinate (Er) 25 Mg Tab.Er.24h PO DAILY ANGELA Nitroglycerin 0.4 mg 03/14/21 10:36 Nitroglycerin Sl Tabs 0.4 Mg Tab SUBLINGUAL Q5M PRN Chest Pain Nitroglycerin 1 inch 03/14/21 12:00 03/15/21 00:12 Nitroglycerin Oint 1 Inch/Gm Packet TOPICAL Not Given Q6HR ANGELA Tamsulosin HCl 0.4 mg 03/15/21 09:00 Tamsulosin 0.4 Mg Cap.Er.24h PO DAILY ANGELA Intake and Output 03/14/21 03/15/21 03/15/21 22:59 06:59 14:59 Intake Total 540 Balance 540 Intake: Oral 540 Other: Voiding Method Toilet Toilet Toilet # Voids 1 03/14/21 08:25 03/14/21 08:25
[2021-03-15 09:59] LABS: Chol/HDL Ratio 4.14 Ratio; HDL Cholesterol 36.7 mg/dL (40.00-60.00); LDL Cholesterol,Calculated 60.5 mg/dL (0.0-131.0); VLDL Calculation 54.8 mg/dL (5.00-40.00)
[2021-03-15] MEDS: HEPARIN SODIUM,PORCINE/PF 5,000 UNIT/0.5 ML SYRINGE SQ SCH (10:31)
--- NOTE | 2021-03-15 12:46 | ECHOF ---
Referral Reason:re: CP MEASUREMENTS -------- HEIGHT: 177.8 cm WEIGHT: 99.8 kg BP: 168/71 RVIDd: 3.9 cm (< 3.3) IVSd: 1.4 cm (0.6 - 1.1) LVIDd: 4.4 cm (3.9 - 5.3) LVPWd: 1.5 cm (0.6 - 1.1) IVSs: 1.9 cm LVIDs: 3.3 cm LVPWs: 2.3 cm LA Diam: 4.3 cm (2.7 - 3.8) LAESV Index (A-L): 23.69 ml/m Ao Diam: 3.3 cm (2.0 - 3.7) AV Cusp: 1.7 cm (1.5 - 2.6) MV EXCURSION: 10.703 mm (> 18.000) MV EF SLOPE: 33 mm/s (70 - 150) EPSS: 1.0 cm MV E Branden: 0.72 m/s MV DecT: 284 ms MV A Branden: 0.98 m/s MV E/A Ratio: 0.73 RAP: 5.00 mmHg RVSP: 39.03 mmHg FINDINGS -------- Sinus rhythm. This was a technically adequate study. The left ventricular size is normal. There is moderate concentric left ventricular hypertrophy. O verall left ventricular systolic function is normal with, an EF between 55 - 60 %. The right ventricle is moderately enlarged. Normal LA size by volume 22+/-6 ml/m2. The right atrium is normal in size. Interatrial and interventricular septum intact. The aortic valve is trileaflet, and appears structurally normal. No aortic stenosis or regurgitation. The mitral valve is normal. Mild tricuspid regurgitation present. There is mild pulmonary hypertension. The right ventricular systolic pressure, as measured by Doppler, is 39.03mmHg. Trace/mild (physiologic) pulmonic regurgitation. The aortic root size is normal. Normal inferior vena cava with normal inspiratory collapse consistent with estimated right atrial pre ssure of 5 mmHg. CONCLUSIONS -------- 1. The left ventricular size is normal. 2. There is moderate concentric left ventricular hypertrophy. 3. Overall left ventricular systolic function is normal with, an EF between 55 - 60 %. 4. The right ventricle is moderately enlarged. 5. Normal LA size by volume 22+/-6 ml/m2. 6. The aortic valve is trileaflet, and appears structurally normal. No aortic stenosis or regurgitati on. 7. Mild tricuspid regurgitation present. 8. There is mild pulmonary hypertension. 9. The right ventricular systolic pressure, as measured by Doppler, is 39.03mmHg. 10. Trace/mild (physiologic) pulmonic regurgitation. CORK TIPPER: MARBIN Nuñez
--- NOTE | 2021-03-15 19:07 | P.HPIM ---
History of Present Illness This is a pleasant 80 years old male with past medical history of Coronary Artery Disease, GERD, Hyperlipidemia, Hypertension, benign prostatic hypertrophy. Melanoma and malignant left kidney. He is a patient of Dr. Fuller He presents because of left shoulder pain which wake him up this morning at 3 AM, radiating to the left side of the chest. 5/10, and down to 1-2/10 currently. Nonspecific. No chest pain currently. Over patient whenever he walks less than a quarter of a mile he develop chest pain the other day which lasted for about one hour or he got really tired Also he developed some neck pain from below about 2 weeks ago. He has difficulty off working because of his chest pain and shoulder pain Vitals are stable, blood pressure 152/78 Labs including CBC, BMP, liver enzymes are unremarkable. Creatinine 1.4 which is at baseline of 1.4-1.7 Troponin 2 are negative less than 0.012. Chest x-ray: No acute process EKG showing normal sinus rhythm at 63 with first-degree AV block and left bundle branch block, QTC 499 N emergency room patient was started on aspirin 325 mg daily Review of Systems CONSTITUTIONAL: No fever, no malaise, no fatigue. HEENT: No recent visual problems or hearing problems. Denied any sore throat. CARDIOVASCULAR: No orthopnea, PND, no palpitations, no syncope. PULMONARY: No shortness of breath, no cough, no hemoptysis. GASTROINTESTINAL: No diarrhea, no nausea, no vomiting, no abdominal pain. Normoactive bowel sounds. NEUROLOGICAL: No headaches, no weakness, no numbness. HEMATOLOGICAL: Denies any bleeding or petechiae. GENITOURINARY: Denies any burning micturition, frequency, or urgency. MUSCULOSKELETAL/RHEUMATOLOGICAL: Denies any joint pain, swelling, or any muscle pain. ENDOCRINE: Denies any polyuria or polydipsia. Past Medical History Past Medical History: Coronary Artery Disease (CAD), Cancer, GERD/Reflux, Hyperlipidemia, Hypertension, Prostate Disorder Additional Past Medical History / Comment(s): basal cell and melanoma skin cancer, seasonal allergies, malignant left kidney History of Any Multi-Drug Resistant Organisms: None Reported Past Surgical History: Heart Catheterization With Stent, Joint Replacement Additional Past Surgical History / Comment(s): rt hip replacement 2012, removal of basal cell and melanoma skin cancer, left kidney removed for malignancy, 2 cardiac stents 2017 Past Anesthesia/Blood Transfusion Reactions: No Reported Reaction Date of Last Stent Placement:: 09/09/17 Past Psychological History: No Psychological Hx Reported Smoking Status: Former smoker Past Alcohol Use History: Occasional Additional Past Alcohol Use History / Comment(s): quit 1987 smoked 30 years 1- 2ppd Past Drug Use History: None Reported - Past Family History Father Family Medical History: Cancer Additional Family Medical History / Comment(s): skin cancer Medications and Allergies Home Medications Medication Instructions Recorded Confirmed Type Aspirin [Adult Low Dose Aspirin EC] 81 mg PO HS 02/13/18 03/14/21 History Finasteride [Proscar] 5 mg PO DAILY 02/13/18 03/14/21 History Glucosam/Cristofer-Msm1/C/Roly/Bosw 1 tab PO BID 02/13/18 03/14/21 History [Glucosamine-Chondroitin Tablet] Losartan/Hydrochlorothiazide 1 tab PO DAILY 02/13/18 03/14/21 History [Losartan-Hctz 50-12.5 mg Tab] Omeprazole [PriLOSEC] 20 mg PO DAILY 02/13/18 03/14/21 History Tamsulosin [Flomax] 0.4 mg PO DAILY 02/13/18 03/14/21 History Vit C/E/Zn/Coppr/Lutein/Zeaxan 1 cap PO DAILY 02/13/18 03/14/21 History [Preservision Areds 2 Softgel] diphenhydrAMINE [Benadryl] 25 mg PO HS PRN 02/13/18 03/14/21 History Atorvastatin Calcium [Lipitor] 80 mg PO HS 03/14/21 03/14/21 History Fluticasone Nasal [place] [Flonase 1 spray EA NOSTRIL HS 03/14/21 03/14/21 History Nasal [place]] Isosorbide Mononitrate ER [Imdur] 30 mg PO HS 03/14/21 03/14/21 History Metoprolol Succinate (ER) [Toprol 25 mg PO DAILY 03/14/21 03/14/21 History XL] Tiotropium 18 Mcg/Puff [Spiriva] 1 puff INHALATION RT-DAILY 03/14/21 03/14/21 History Allergies Allergy/AdvReac Type Severity Reaction Status Date / Time No Known Allergies Allergy Verified 03/14/21 09:36 Physical Exam Vitals: Vital Signs Temp Pulse Pulse Resp BP BP Pulse Ox 03/14/21 12:20 98 03/14/21 12:08 97.6 F 67 16 152/78 95 03/14/21 11:23 97.7 F 68 18 141/78 94 L 03/14/21 11:21 68 18 141/78 94 L 03/14/21 08:47 62 18 143/78 93 L 03/14/21 07:50 97.7 F 65 18 175/88 98 Intake and Output 03/13/21 03/14/21 03/14/21 22:59 06:59 14:59 Other: Voiding Method Toilet Weight 99.79 kg GENERAL: The patient is alert and oriented x3, not in any acute distress. Well developed, well nourished. HEENT: Pupils are round and equally reacting to light. EOMI. No scleral icterus. No conjunctival pallor. Normocephalic, atraumatic. No pharyngeal erythema. No thyromegaly. CARDIOVASCULAR: S1 and S2 present. No murmurs, rubs, or gallops. PULMONARY: Chest is clear to auscultation, no wheezing or crackles. ABDOMEN: Soft, nontender, nondistended, normoactive bowel sounds. No palpable organomegaly. MUSCULOSKELETAL: No joint swelling or deformity. EXTREMITIES: No cyanosis, clubbing, or pedal edema. NEUROLOGICAL: Gross neurological examination did not reveal any focal deficits. SKIN: No rashes. No petechiae Results CBC & Chem 7: 03/14/21 08:25 03/14/21 08:25 Labs: Abnormal Lab Results - Last 24 Hours (Table) 03/14/21 03/14/21 03/14/21 Range/Units 08:25 08:25 08:25 RBC 3.95 L (4.30-5.90) m/uL Hgb 12.5 L (13.0-17.5) gm/dL Hct 37.6 L (39.0-53.0) % Lymphocytes # 0.8 L (1.0-4.8) k/uL APTT 21.5 L (22.0-30.0) sec Sodium 135 L (137-145) mmol/L BUN 33 H (9-20) mg/dL Creatinine 1.48 H (0.66-1.25) mg/dL Glucose 169 H (74-99) mg/dL Thrombosis Risk Factor Assmnt - Choose All That Apply Any of the Below Risk Factors Present?: No Other Risk Factors: Yes Each Risk Factor Represents 3 Points: Age 75 years or older Thrombosis Risk Factor Assessment Total Risk Factor Score: 3 Thrombosis Risk Factor Assessment Level: Moderate Risk Assessment and Plan Assessment: Left shoulder pain and left side of the chest pain history of Coronary Artery Disease history of GERD Hyperlipidemia Hypertension benign prostatic hypertrophy history of Melanoma and malignant left kidney Plan: this is a pleasant male who present with left soulder pain and chest pain to rule out cardiac causes we will do serial troponin echo cervical spine xray cardiology consult Labs and medication were reviewed.. Continue same treatment. Continue with symptomatic treatment. Resume home medication. Monitor lytes and vitals. DVT and GI prophylaxis. Further recommendations as per clinical course of the patient
--- NOTE | 2021-03-15 19:43 | P.DS ---
Providers Date of admission: 03/14/21 10:44 Attending physician: Sidney Coto Consults: 03/14/21 10:37 Consult Physician Urgent Consulting Provider: [facility] Consult Reason/Comments: Chest pain Do you want consulting provider notified?: Yes Primary care physician: Blayne Fuller Hospital Course: diagnoses: Left shoulder pain and left side of the chest pain , completely resolved upon di scharge. Patient was cleared for discharge by lute packer or applier history of Coronary Artery Disease history of GERD Hyperlipidemia Hypertension benign prostatic hypertrophy history of Melanoma and malignant left kidney hospital course This is a pleasant 80 years old male with past medical history of Coronary Artery Disease, GERD, Hyperlipidemia, Hypertension, benign prostatic hypertrophy. Melanoma and malignant left kidney. He is a patient of Dr. Fuller He presents because of left shoulder pain which wake him up this morning at 3 AM, radiating to the left side of the chest. Leg x-ray was negative for acute processes showing mild degenerative disc disease.Troponin 2 are negative less than 0.012. Chest x-ray: No acute process Patient also evaluated by lute packer or applier, patient had recent negative stress test. Echocardiogram was checked and showing ejection fraction of 55-60% with moderate concentric left ventricular hypertrophy. On the day of discharge patient left shoulder and chest pain or completely resolved. Patient denies any other symptoms and he states he is back to his baseline. Has dyspnea or change in urine or bowel habits. No fever. Patient was cleared for discharge by lute packer or applier Problems and management plan were discussed with the patient and he verbalized understanding and acceptance Patient was found stable and can be discharged home however he needs follow-up as an outpatient. Patient was instructed to follow up with PCP Dr. Fuller within one week and patient agrees pt was instructed to follow up with in one to two weeks and she agrees with appointment on 03/18 Physical exam Gen: patient is a AAOx3, no distress CVS: S1-S2, RRR, no murmur Lungs: B/L CTA, no wheezing Abdomen: soft, no distention, no tenderness, positive bowel sounds Extremity: no leg edema or induration Time spent more than 35 minutes Plan - Discharge Summary Discharge Rx Participant: No New Discharge Prescriptions: Continue Aspirin [Adult Low Dose Aspirin EC] 81 mg PO HS Tamsulosin [Flomax] 0.4 mg PO DAILY Losartan/Hydrochlorothiazide [Losartan-Hctz 50-12.5 mg Tab] 1 tab PO DAILY Finasteride [Proscar] 5 mg PO DAILY Omeprazole [PriLOSEC] 20 mg PO DAILY diphenhydrAMINE [Benadryl] 25 mg PO HS PRN PRN Reason: SLEEP Vit C/E/Zn/Coppr/Lutein/Zeaxan [Preservision Areds 2 Softgel] 1 cap PO DAILY Glucosam/Cristofer-Msm1/C/Roly/Bosw [Glucosamine-Chondroitin Tablet] 1 tab PO BID Tiotropium 18 Mcg/Puff [Spiriva] 1 puff INHALATION RT-DAILY Atorvastatin Calcium [Lipitor] 80 mg PO HS Metoprolol Succinate (ER) [Toprol XL] 25 mg PO DAILY Isosorbide Mononitrate ER [Imdur] 30 mg PO HS Fluticasone Nasal [place] [Flonase Nasal [place]] 1 spray EA NOSTRIL HS Discharge Medication List Aspirin [Adult Low Dose Aspirin EC] 81 mg PO HS 02/13/18 [History] Finasteride [Proscar] 5 mg PO DAILY 02/13/18 [History] Glucosam/Cristofer-Msm1/C/Roly/Bosw [Glucosamine-Chondroitin Tablet] 1 tab PO BID 02/13/18 [History] Losartan/Hydrochlorothiazide [Losartan-Hctz 50-12.5 mg Tab] 1 tab PO DAILY 02/13/18 [History] Omeprazole [PriLOSEC] 20 mg PO DAILY 02/13/18 [History] Tamsulosin [Flomax] 0.4 mg PO DAILY 02/13/18 [History] Vit C/E/Zn/Coppr/Lutein/Zeaxan [Preservision Areds 2 Softgel] 1 cap PO DAILY 02/13/18 [History] diphenhydrAMINE [Benadryl] 25 mg PO HS PRN 02/13/18 [History] Atorvastatin Calcium [Lipitor] 80 mg PO HS 03/14/21 [History] Fluticasone Nasal [place] [Flonase Nasal [place]] 1 spray EA NOSTRIL HS 03/14/21 [History] Isosorbide Mononitrate ER [Imdur] 30 mg PO HS 03/14/21 [History] Metoprolol Succinate (ER) [Toprol XL] 25 mg PO DAILY 03/14/21 [History] Tiotropium 18 Mcg/Puff [Spiriva] 1 puff INHALATION RT-DAILY 03/14/21 [History] Follow up Appointment(s)/Referral(s): Blayne Fuller DO [Primary Care Provider] - 1-2 days Ambrosio Rivera MD [STAFF PHYSICIAN] - 03/18/21 8:00 am (you said you have appointment with this coming sunday 03/18) Activity/Diet/Wound Care/Special Instructions: Heart healthy diet Activity is restricted till you see your doctor Discharge Disposition: HOME SELF-CARE
== END 2021-03-15 13:32 | disposition home or self-care (01) ==
LOC: EC 07:49 → 6NMEDSUR 10:44
PROVIDERS: ADMIT Hospitalist; ATTEND Hospitalist
DX: R07.89 Other chest pain (principal); M25.512 Pain in left shoulder; I25.10 Atherosclerotic heart disease of native coronary artery without angina pectoris; I12.9 Hypertensive chronic kidney disease with stage 1 through stage 4 chronic kidney disease, or unspecified chronic kidney disease; N18.9 Chronic kidney disease, unspecified; E78.00 Pure hypercholesterolemia, unspecified; I10 Essential (primary) hypertension; E78.5 Hyperlipidemia, unspecified; K21.9 Gastro-esophageal reflux disease without esophagitis; I44.7 Left bundle-branch block, unspecified; I44.0 Atrioventricular block, first degree; N40.0 Benign prostatic hyperplasia without lower urinary tract symptoms; Z79.82 Long term (current) use of aspirin; Z79.899 Other long term (current) drug therapy; Z91.048 Other nonmedicinal substance allergy status; Z87.891 Personal history of nicotine dependence; Z95.5 Presence of coronary angioplasty implant and graft; Z85.820 Personal history of malignant melanoma of skin; Z85.528 Personal history of other malignant neoplasm of kidney; Z96.641 Presence of right artificial hip joint; Z90.5 Acquired absence of kidney; Z98.890 Other specified postprocedural states; Z80.8 Family history of malignant neoplasm of other organs or systems
CPT/HCPCS: 96376; 96374; 99285; 36415; 93005; 93306; 80061; 80053; 83735; 84484; 85025; 85610; 85730; 72040; 71046; G0378 ×2; S0138

== ENCOUNTER → 2021-12-01 | Outpatient (CLI) | payer MEDICARE ==
--- NOTE | 2021-12-01 09:25 | XR ---
EXAMINATION TYPE: XR chest 2V DATE OF EXAM: 12/01/2021 COMPARISON: 03/14/2021 TECHNIQUE: PA and lateral views submitted. HISTORY: Post nephrectomy FINDINGS: The lungs are clear and there is no pneumothorax, pleural effusion, or focal pneumonia. Heart size stable. No overt failure. Biapical pleural thickening and arthropathy of the shoulders with diffuse o steopenia. Hypertrophic and degenerative changes in the spine. Suggestion of previous coronary artery stenting. IMPRESSION: 1. No acute process.
[2021-12-01 14:30] LABS: ALT 26 U/L (10-49); AST 19 U/L (14-35); Albumin 4.1 g/dL (3.8-4.9); Albumin/Globulin Ratio 2.16 (1.60-3.17); Alkaline Phosphatase 68 U/L (41-126); Bilirubin, Conjugated <0.20 mg/dL (0.20-0.40); Globulin 1.9 g/dL (1.6-3.3)
== END | disposition home or self-care (01) ==
LOC: LABWHC1 08:45
PROVIDERS: ATTEND Urology
DX: C64.2 Malignant neoplasm of left kidney, except renal pelvis (principal)
CPT/HCPCS: 36415; 71046; 80076

== ENCOUNTER → 2022-01-20 | Outpatient (CLI) | payer MEDICARE ==
--- NOTE | 2022-01-20 11:27 | CT ---
EXAMINATION TYPE: CT pelvis wo con DATE OF EXAM: 01/20/2022 COMPARISON: None INDICATION: Prostate Cancer DLP: 527 mGycm, Automated exposure control for dose reduction was used. CONTRAST: 0 mL of Isovue 300. Study performed with Oral Contrast TECHNIQUE: Axial images were obtained from above the diaphragm to the pubic rami in the axial plane a t 5 mm thick sections. Reconstructed images are reviewed on the computer in the coronal plane. FINDINGS: CT PELVIS: Right hip prosthesis causes some limitation on the inferior aspect of the pelvis evaluatio n. Vascular calcifications within the aorta. A 3.0 cm fusiform prominence is within the mid abdominal ao rta. Some mild fusiform prominence may extend into the common iliac arteries. The right internal elvia c artery proximally appears prominent measuring 2.3 cm. Fecal debris is within the colon. Small bowel loops contain oral contrast. There are loops of bowel w hich are incompletely distended or lack oral contrast limiting their evaluation. Appendix: Normal as visualized. Urinary bladder: Normal. Genitourinary structures: Minimal prominence. There is some asymmetric enlargement greater towards th e posterior right region of the prostate. Some adjacent diffuse wall thickening of the distal rectum may be present. Osseous structures: No suspicious lytic or sclerotic lesions. IMPRESSIONS: 1. Mild asymmetry within the prostate as could be better evaluated with MRI. This could reflect the patient's known prostate cancer. 2. Fusiform prominence of the aorta and proximal right external iliac artery.
--- NOTE | 2022-01-20 16:06 | NM ---
EXAMINATION TYPE: NM bone scan whole body DATE OF EXAM: 01/20/2022 COMPARISON: NONE HISTORY: Pain Delayed whole-body scanning was performed following the injection of 22.2 mCi Tc 99m MDP. Images acq uired 4 hours post injection. FINDINGS: Abnormal uptake involving the cervical spine likely degenerative. Abnormal uptake involving the right shoulder likely postarthritic. Faint abnormal uptake throughout the thoracic and lumbar spine likely degenerative. Abnormal uptake involving the slightly posterior to it. Nonspecific moderate intensity uptake along the right iliac bone. Photopenic defect right hip consistent with surgery. IMPRESSION: 1. Nonspecific uptake throughout the cervical, thoracic and lumbar spine most likely degenerative. Mo re high intensity uptake seen involving the cervical spine could be correlated with x-ray given the p atient's history. 2. Moderate intensity uptake right iliac bone appears to be most likely related to a bone island in c omparison to the CAT scan of 01/20/2022
== END | disposition home or self-care (01) ==
LOC: RADNMMAIN 09:31
PROVIDERS: ATTEND Urology
DX: C61 Malignant neoplasm of prostate (principal)
CPT/HCPCS: 72192; 78306; A9503

== ENCOUNTER → 2022-02-18 | Outpatient (CLI) | payer MEDICARE ==
--- NOTE | 2022-02-18 11:20 | MR ---
EXAMINATION TYPE: MR Prostate wo/w con DATE OF EXAM: 02/18/2022 10:27 AM COMPARISON: Bone scan 01/20/2022.. CLINICAL INDICATION:Male, 81 years old with history of C61 MALIGNANT NEOPLASM OF PROSTATE; TECHNIQUE: Multi-planar, multi-sequence imaging of the pelvis is performed prior to and following the uncomplicated administration of bolus intravenous gadolinium. CONTRAST: 10 Gadavist Interpretive Criteria: PI-RADS v2.1 SERUM PSA: 2.8 on 12/06/2020 SURGICAL PATHOLOGY: Adenocarcinoma on biopsy dated 12/21/2021 involving the right base right mid, righ t apex, left base, and left mid gland. FINDINGS: Prostatic dimensions: 5.3 x 2.6 x 4.4 cm. "Bullet" Volume: 39.68 cc PSA density: 0.7 ng/mL/mL. Ill-defined low T2 signal mass involving the peripheral zone predominantly involving the posterior an d right posterior lateral peripheral gland involving the apex mid gland and base bilaterally, right g reater than left. There is extension through the peripheral capsule into the mesorectal fascia and al elenita the pelvic floor muscles on the right. Overall the mass measures approximately 3.2 x 2.5 x 4.1 cm . There is extension into the right seminal vesicles suggested on series 15 image 24. This surrounds the neurovascular bundle on the right. The soft tissue also abuts the rectum on series 501 image 13 s uggestive of serosal invasion. There is postcontrast enhancement of this mass. SEMINAL VESICLES (SV): Asymmetric right low T1 signal high DWI signal. LYMPH NODES: Right external iliac lymph node measuring up to 13 mm in short axis. There is a prominent left central office mechanic al iliac lymph node measuring 7 mm in short axis on series 501 image 29. REMAINING PELVIS: Trabeculations within the bladder with left lateral bladder diverticula present. No abnormal free or organized intrapelvic fluid collection. No pathologic bowel dilation or mural thick ening. OSSEOUS STRUCTURES: No suspicious osseous abnormality. Right hip arthroplasty present. IMPRESSION: 1. PI-RADS 5 lesion predominantly involving the peripheral gland apex, mid gland and base with exten richard into the right neurovascular bundle, right mesial rectal fascia, along the rectum and up to the right pelvic floor muscles. There is suspected invasion into the right seminal vesicles. Invasion int o the rectum cirrhosis not entirely excluded. Extent of metastatic disease could be performed with a gallium 68 PSMA PET/CT 2. Bilateral external iliac lymph nodes on the right which is enlarged up to 13 mm in short axis.
== END | disposition home or self-care (01) ==
LOC: RADMRIMAIN 09:11
PROVIDERS: ATTEND Radiology Radiation Oncology
DX: C61 Malignant neoplasm of prostate (principal); R59.0 Localized enlarged lymph nodes
CPT/HCPCS: 72197; A9585

== ENCOUNTER → 2022-02-28 | Outpatient (CLI) | payer MEDICARE ==
[2022-02-28 18:44] LABS: African American GFR (CKD) 48.8 (60.0-200.0); Anion Gap 10.5 mmol/L (10.00-18.00); BUN/Creat Ratio 21.06 Ratio (12.00-20.00); Blood Urea Nitrogen 31.8 mg/dL (9.0-27.0); Calcium 9.5 mg/dL (8.7-10.3); Non-African American GFR(CKD) 42.1 (60.0-200.0); Potassium 4.4 mmol/L (3.5-5.5)
[2022-02-28 18:46] LABS: Basophils # (A) 0.06 X 10*3/uL (0.00-0.10); Basophils % (A) 0.9 %; Eosinophils # (A) 0.38 X 10*3/uL (0.04-0.35); Eosinophils % (A) 5.5 %; HCT 34.8 % (39.6-50.0); HGB 11.4 g/dL (13.0-17.0); Immature Grans, Automated 0.4 %; Lymphocytes # (A) 1.09 X 10*3/uL (0.90-5.00); Lymphocytes % (A) 15.9 %; MCH 30.8 pg (27.0-32.0); MCHC 32.8 g/dL (32.0-37.0); MCV 94.1 fL (80.0-97.0); Mean Platelet Volume 9.4 fL (9.5-12.2); Monocytes # (A) 0.86 X 10*3/uL (0.20-1.00); Monocytes % (A) 12.5 %; NRBC Per 100 WBC 0 /100 WBCS (0.0-0.0); Neutrophils # (A) 4.45 X 10*3/uL (1.80-7.70); Neutrophils % (A) 64.8 %; Platelet Count 198 X 10*3/uL (140-440); RDW 13.2 % (11.5-14.5); WBC 6.87 X 10*3/uL (4.50-10.00)
== END | disposition home or self-care (01) ==
LOC: LABPAT 10:16
PROVIDERS: ATTEND Urology
DX: Z01.812 Encounter for preprocedural laboratory examination (principal); C61 Malignant neoplasm of prostate
CPT/HCPCS: 80048; 85025

== ENCOUNTER 2022-03-10 12:48 | Day surgery (SDC) | payer MEDICARE ==
--- NOTE | 2022-03-06 07:06 | P.GSHP ---
History of Present Illness H&P Date: 03/06/22 Chief Complaint: Prostate cancer The patient is an 81-year-old white male with a history of renal cell carcinoma. His PSA level was 3.2 in September 2021. In November, NATALIA revealed a right-sided prostate nodule. He underwent a prostate ultrasound with biopsies. His prostate volume was 49 mL. 6 biopsies were performed, 3 on each side. 5 of 6 showed high-grade prostate cancer. Metastatic evaluation consisted of a CT scan and bone scan, both of which were negative. He will be treated with androgen deprivation therapy and IMRT. He now comes for SpaceOAR implant to reduce the risk of rectal toxicity. - Cardiovascular Cardiovascular: Reports high blood pressure - Genitourinary (Male) Genitourinary: Reports urinary frequency Past Medical History Past Medical History: Coronary Artery Disease (CAD), Cancer, GERD/Reflux, Hyperlipidemia, Hypertension, Prostate Disorder Additional Past Medical History / Comment(s): basal cell and melanoma skin cancer, seasonal allergies, malignant left kidney History of Any Multi-Drug Resistant Organisms: None Reported Past Surgical History: Heart Catheterization With Stent, Joint Replacement Additional Past Surgical History / Comment(s): rt hip replacement 2012, removal of basal cell and melanoma skin cancer, left kidney removed for malignancy, 2 cardiac stents 2017 Past Anesthesia/Blood Transfusion Reactions: No Reported Reaction Date of Last Stent Placement:: 09/09/17 Past Psychological History: No Psychological Hx Reported Smoking Status: Former smoker Past Alcohol Use History: Occasional Additional Past Alcohol Use History / Comment(s): quit 1987 smoked 30 years 1- 2ppd Past Drug Use History: None Reported - Past Family History Father Family Medical History: Cancer Additional Family Medical History / Comment(s): skin cancer Medications and Allergies Home Medications Medication Instructions Recorded Confirmed Type Aspirin [Adult Low Dose Aspirin EC] 81 mg PO HS 02/13/18 03/14/21 History Finasteride [Proscar] 5 mg PO DAILY 02/13/18 03/14/21 History Glucosam/Cristofer-Msm1/C/Roly/Bosw 1 tab PO BID 02/13/18 03/14/21 History [Glucosamine-Chondroitin Tablet] Losartan/Hydrochlorothiazide 1 tab PO DAILY 02/13/18 03/14/21 History [Losartan-Hctz 50-12.5 mg Tab] Omeprazole [PriLOSEC] 20 mg PO DAILY 02/13/18 03/14/21 History Tamsulosin [Flomax] 0.4 mg PO DAILY 02/13/18 03/14/21 History Vit C/E/Zn/Coppr/Lutein/Zeaxan 1 cap PO DAILY 02/13/18 03/14/21 History [Preservision Areds 2 Softgel] diphenhydrAMINE [Benadryl] 25 mg PO HS PRN 02/13/18 03/14/21 History Atorvastatin Calcium [Lipitor] 80 mg PO HS 03/14/21 03/14/21 History Fluticasone Nasal [place] [Flonase 1 spray EA NOSTRIL HS 03/14/21 03/14/21 History Nasal [place]] Isosorbide Mononitrate ER [Imdur] 30 mg PO HS 03/14/21 03/14/21 History Metoprolol Succinate (ER) [Toprol 25 mg PO DAILY 03/14/21 03/14/21 History XL] Tiotropium 18 Mcg/Puff [Spiriva] 1 puff INHALATION RT-DAILY 03/14/21 03/14/21 History Allergies Allergy/AdvReac Type Severity Reaction Status Date / Time No Known Allergies Allergy Verified 03/14/21 09:36 Surgical - Exam - General well developed, well nourished, no distress - Respiratory normal respiratory effort - Abdomen Abdomen: soft, non tender, no guarding, no rigid, no rebound - Genitourinary normal penis with no external lesions, testicles non-tender - Rectum Rectum: normal sphincter tone, no masses, other (Prostate mildly enlarged, right-sided nodule) - Psychiatric oriented to time, oriented to person, oriented to place, speech is normal, memory intact Assessment and Plan (1) Malignant neoplasm of prostate Status: Acute Code(s): C61 - MALIGNANT NEOPLASM OF PROSTATE SNOMED Code(s): 489987997 Plan: The SpaceOar implant has been reviewed in detail with the patient. He u nderstands that the rationale for this is to create separation between the prostate and rectum, thus reducing the risk of radiation proctitis. The material begins to breakdown 12-13 weeks following implant, and is reabsorbed by the body. Risks include anesthesia, bleeding, infection, and perineal discomfort. He understands that if the rectal wall is perforated the procedure will need to be aborted. The procedure will be performed by Dr. Pugh.
[2022-03-08 15:26] VITALS: BMI 29.9
[~2022-03-10 12:48] MED LIST changes: +DEXAMETHASONE SOD PHOSPHATE 4 MG/ML 1 ML VIAL IV ONE; +LACTATED RINGERS 1,000 ML IV SCH; +MIDAZOLAM 2 MG/2 ML VIAL IV PRN; -ceFAZolin IN SWFI 2 GM/20 ML SYRINGE IVP ONE; -fentaNYL (PF) 50 MCG/ML 2 ML AMP IV PRN
[2022-03-10 13:21] VITALS: TEMP 96.2
[2022-03-10 13:37] LABS: Glucose,Whole Blood 120 mg/dL (70-110)
[2022-03-10] MEDS ORDERED: PROPOFOL 10 MG/ML 20 ML VIAL IV ONE (13:48)
[2022-03-10] MEDS ORDERED: KETAMINE 10 MG/ML 20 ML VIAL ONE (13:48)
[2022-03-10] MEDS ORDERED: fentaNYL (PF) 50 MCG/ML 2 ML AMP ONE (13:48)
[2022-03-10] MEDS ORDERED: LIDOCAINE 2% INJ 20 MG/ML (2 ML VIAL) ONE (13:48)
[2022-03-10] MEDS ORDERED: MIDAZOLAM 2 MG/2 ML VIAL ONE (13:48)
[2022-03-10] MEDS ORDERED: LIDOCAINE 2% INJ 20 MG/ML SQ ONE (14:03)
--- NOTE | 2022-03-10 14:30 | P.OP ---
Date of Procedure: 03/10/22 Preoperative Diagnosis: Prostate cancer Postoperative Diagnosis: Same Procedure(s) Performed: Transrectal ultrasound Implants: none Anesthesia: MAC Surgeon: Marlon Pugh Estimated Blood Loss (ml): 1 Pathology: none sent Condition: stable Disposition: PACU Indications for Procedure: The patient is an 81-year-old white male with a history of renal cell carcinoma. His PSA level was 3.2 in September 2021. In November, NATALIA revealed a right-sided prostate nodule. He underwent a prostate ultrasound with biopsies. His prostate volume was 49 mL. 6 biopsies were performed, 3 on each side. 5 of 6 showed high-grade prostate cancer. Metastatic evaluation consisted of a CT scan and bone scan, both of which were negative. He will be treated with androgen deprivation therapy and IMRT. He now comes for SpaceOAR implant to reduce the risk of rectal toxicity. Operative Findings: Along the right side of the prostate no clear plane could be identified along the prostate, with evidence of extra prosthetic extension into the rectum Description of Procedure: The patient was taken to the operating room and placed in the dorsolithotomy position, with his legs supported in Hector stirrups. The external genitalia was prepped and draped sterilely. The transrectal ultrasound probe was placed intrarectally. The prostate was imaged. under ultrasound along the right apex and mid gland the contour was abnormal. There was evidence of extraprostatic extension into the urethra, and into the perirectal plane and the rectal wall. There was no fat plane could be visualized along the right side of the prostate between the prostate and the rectum along the apex and mid gland. Of note along the left side of the prostate and the fat plane could clearly be identified. Given the evidence of extraprostatic extension and invasion into the perirectal fat plane decision was made not to proceed with placement. The patient tolerated the procedure well and was taken to the recovery room in stable condi tion
[2022-03-10 14:41] VITALS: BP 120/62; PULSE 57; RESP 16
== END 2022-03-10 15:05 | disposition home or self-care (01) ==
LOC: OR 12:48
PROVIDERS: ATTEND Urology
DX: C61 Malignant neoplasm of prostate (principal); I25.10 Atherosclerotic heart disease of native coronary artery without angina pectoris; K21.9 Gastro-esophageal reflux disease without esophagitis; E78.5 Hyperlipidemia, unspecified; I10 Essential (primary) hypertension; C43.9 Malignant melanoma of skin, unspecified; J30.2 Other seasonal allergic rhinitis; Z95.5 Presence of coronary angioplasty implant and graft; Z98.890 Other specified postprocedural states; Z85.528 Personal history of other malignant neoplasm of kidney; Z87.891 Personal history of nicotine dependence; F10.99 Alcohol use, unspecified with unspecified alcohol-induced disorder; Z80.8 Family history of malignant neoplasm of other organs or systems; Z79.82 Long term (current) use of aspirin; Z79.899 Other long term (current) drug therapy; Z79.1 Long term (current) use of non-steroidal anti-inflammatories (NSAID); Z79.51 Long term (current) use of inhaled steroids
CPT/HCPCS: 76872; J2001 ×2; J2250; J1100; J0690; J2405; J3010; J2704

== ENCOUNTER → 2023-01-29 | Outpatient (CLI) | payer MEDICARE ==
--- NOTE | 2023-01-29 14:17 | US ---
EXAMINATION TYPE: US arterial LE single level DATE OF EXAM: 01/29/2023 1:43 PM CLINICAL INDICATION: Male, 82 years old with history of M79.661 PAIN L LEG, M79.662, R06.02 SOB; Marlena ent states bilateral legs hurt after walking. History of: Smoker: Previous Hypertension: Takes medication Diabetic: No Hyperlipidemia: Yes TIA/CVA: No Previous Vascular Surgery: no CAD: yes DC: yes Vascular Ulcers: no Claudication: Bilateral per patient Gangrene: no Doppler Waveforms: Right: Triphasic with biphasic in right digit. Left: Triphasic with biphasic and right digit Right Brachial Pressure: 125 Left Brachial Pressure: 124 Ankle-Brachial Indices: Right: 1.3 Left: 0.8 Toe Brachial Indices: Right: 1.3 Left: 1.3 IMPRESSION: No significant flow-limiting stenosis.
--- NOTE | 2023-01-30 12:02 | CA ---
Transthoracic Echo Report Name: Girish Hoyos Age: 82 Gender: M : 1940 Exam Date: 01/29/2023 14:15 Exam Location: [facility] Ht (in): 71 Wt (lb): 210 Ordering Physician: Blayne Fuller DO Attending/Referring Phys: Engagement Lead Maribel Laguna RDCS Procedure CPT: Indications: R06.02 SOB Cardiac Hx: Technical Quality: Fair Contrast 1: Total Dose (mL): Contrast 2: Total Dose (mL): MEASUREMENTS (Male / Female) Normal Values 2D ECHO LV Diastolic Diameter PLAX 5.1 cm 4.2 - 5.9 / 3.9 - 5.3 cm LV Systolic Diameter PLAX 3.1 cm IVS Diastolic Thickness 1.4 cm 0.6 - 1.0 / 0.6 - 0.9 cm LVPW Diastolic Thickness 1.4 cm 0.6 - 1.0 / 0.6 - 0.9 cm LV Relative Wall Thickness 0.6 RV Internal Dim ED PLAX 4.4 cm M-MODE Aortic Root Diameter MM 3.2 cm LA Systolic Diameter MM 5.4 cm LA Ao Ratio MM 1.7 AV Cusp Separation MM 2.1 cm DOPPLER AV Peak Velocity 166.7 cm/s AV Peak Gradient 11.1 mmHg AV Mean Velocity 107.6 cm/s AV Mean Gradient 5.2 mmHg AV Velocity Time Integral 34.2 cm LVOT Peak Velocity 86.9 cm/s LVOT Peak Gradient 3.0 mmHg LVOT Velocity Time Integral 18.3 cm Mitral E Point Velocity 56.5 cm/s Mitral A Point Velocity 114.8 cm/s Mitral E to A Ratio 0.5 MV Deceleration Time 258.8 ms MV E' Velocity 4.1 cm/s Mitral E to MV E' Ratio 13.8 TR Peak Velocity 256.0 cm/s TR Peak Gradient 26.2 mmHg Right Ventricular Systolic Press 36.2 mmHg FINDINGS Left Ventricle Mildly increased left ventricular wall thickness. Left ventricular cavity size normal. Normal left ventricular systolic function with no obvious regional wall motion abnormalities. Left ventricular ejection fraction is estimated at 55 %. Right Ventricle Right ventricular dilatation. Mild pulmonary hypertension. Right ventricular systolic pressure estimated at 36 mm hg. Right Atrium Normal right atrial size. Left Atrium Mild left atrial dilatation. Mitral Valve Structurally normal mitral valve. Mitral valve thickened. Mild mitral annular calcification. Mild mitral regurgitation. Aortic Valve Trileaflet aortic valve. No aortic valve stenosis or regurgitation. Thickened aortic valve without stenosis. Tricuspid Valve Mild tricuspid regurgitation. Pulmonic Valve Trace pulmonic regurgitation. Pericardium No pericardial effusion. Aorta Normal size aortic root and proximal ascending aorta. CONCLUSIONS Preserved LV size and systolic function RV enlargement Thickened aortic valve but without any stenosis Previewed by: Dr. Ben Diaz MD (Electronically Signed) Final Date: 30 January 2023 12:01
== END | disposition home or self-care (01) ==
LOC: RADUSWWP 12:56
PROVIDERS: ATTEND Family Medicine
DX: M79.661 Pain in right lower leg (principal); M79.662 Pain in left lower leg; I44.7 Left bundle-branch block, unspecified; I25.10 Atherosclerotic heart disease of native coronary artery without angina pectoris; I10 Essential (primary) hypertension; E78.5 Hyperlipidemia, unspecified; I21.9 Acute myocardial infarction, unspecified; R06.02 Shortness of breath; Z87.891 Personal history of nicotine dependence
CPT/HCPCS: 93306; 93922

== ENCOUNTER → 2023-10-03 | Outpatient (CLI) | payer MEDICARE | END | disposition home or self-care (01) | LOC: LABWHC1 13:08 | PROVIDERS: ATTEND Urology | DX: C61 Malignant neoplasm of prostate (principal) | CPT/HCPCS: 36415; 84153 ==

== ENCOUNTER → 2023-10-08 | Outpatient (CLI) | payer MEDICARE ==
--- NOTE | 2023-10-08 13:29 | XR ---
EXAMINATION TYPE: XR chest 2V DATE OF EXAM: 10/08/2023 COMPARISON: NONE TECHNIQUE: PA and lateral views submitted. HISTORY: Renal cancer FINDINGS: The lungs are clear and there is no pneumothorax, pleural effusion, or focal pneumonia. Heart size normal and no overt failure. Osseous structures demonstrate hypertrophic and degenerative changes of the spine. Ectasia of the thoracic aorta. Arthropathy of the shoulders. Coronary artery calcification or stenting suggested on the lateral view. IMPRESSION: 1. No acute process.
== END | disposition home or self-care (01) ==
LOC: RADXRMAIN 13:12
PROVIDERS: ATTEND Urology
DX: C64.2 Malignant neoplasm of left kidney, except renal pelvis (principal)
CPT/HCPCS: 71046

== ENCOUNTER 2024-01-02 07:21 | Day surgery (SDC) | payer MEDICARE ==
[2024-01-02] MEDS: IV FLUID CONTINUATION 1,000 ML IV ONE (07:37)
[2024-01-02 07:49] VITALS: RESP 16; TEMP 97.6
[2024-01-02 07:57] LABS: Glucose,Whole Blood 137 mg/dL (70-110)
[2024-01-02] MEDS: LACTATED RINGERS 1,000 ML IV SCH (07:58)
[2024-01-02] MEDS ORDERED: PROPOFOL 10 MG/ML 20 ML VIAL IV ONE (08:21)
--- NOTE | 2024-01-02 08:51 | P.PCN ---
Date of Procedure: 01/02/24 Procedure(s) Performed: BRIEF HISTORY: Patient is a 83-year-old pleasant white female scheduled for an elective colonoscopy as a part of evaluation of intermittent rectal bleeding for the last 2 years duration. History of prostate cancer with radiation therapy 2 years ago PROCEDURE PERFORMED: Colonoscopy with biopsy, snare polypectomy and argon plasma coagulation. PREOPERATIVE DIAGNOSIS: Intermittent rectal bleeding. IV sedation per Anesthesia. PROCEDURE: After informed consent was obtained, the patient, was brought into the endoscopy unit. IV sedation was administered by Anesthesia under continuous monitoring. Digital rectal examination was normal. Initially the Olympus CF-160 flexible video colonoscope was then inserted in the rectum, gradually advanced into the cecum without any difficulty. Careful examination was performed as the scope was gradually being withdrawn. Ileocecal valve and the appendiceal orifice were visualized and appeared normal. Prep was excellent. Mucosa of the cecum, had 4 polyps measuring between 5 to 6 mm in size status post cold snare polypectomy. In the ascending colon there were 3 small polyps measuring 3 mm in size removed by cold biopsy. Rest of the ascending colon, transverse colon, appeared normal. The descending colon there was a 6 mm polyp removed by snare polypectomy. Moderate sigmoid diverticulosis seen. Rest of the descending colon, sigmoid colon, normal. In the distal rectum there were several telangiectasia identified consistent with radiation proctitis and argon plasma coagulation was performed with good hemostasis. Retroflexion was performed in the rectum and no lesions were seen. The patient tolerated the procedure well. IMPRESSION: Multiple telangiectasias in the distal rectum consistent with radiation proctitis s/p argon plasma coagulation 4 polyps in the cecum measuring between 5 and 6 mm in size s/p cold snare polypectomy 3 polyps in the ascending colon measuring between 3 to 4 mm in size status post cold biopsy 6 mm descending colon polyp status post snare polypectomy Moderate sigmoid diverticulosis RECOMMENDATIONS: Findings of this examination were discussed with the patient as well as his family. He was advised to follow-up with the biopsy results. Continue the high-fiber diet and fiber supplements on a regular basis and avoid straining and constipation..
[2024-01-02 08:58] VITALS: PULSE 59
[2024-01-02 09:16] VITALS: BP 132/80
== END 2024-01-02 09:37 | disposition home or self-care (01) ==
LOC: ORWHC2ENDO 07:21
PROVIDERS: ATTEND Internal Medicine Gastroenterology
DX: D12.0 Benign neoplasm of cecum (principal); D12.2 Benign neoplasm of ascending colon; D12.4 Benign neoplasm of descending colon; K57.30 Diverticulosis of large intestine without perforation or abscess without bleeding; K62.7 Radiation proctitis; Z85.46 Personal history of malignant neoplasm of prostate; Z92.3 Personal history of irradiation; I10 Essential (primary) hypertension; E78.5 Hyperlipidemia, unspecified; K21.9 Gastro-esophageal reflux disease without esophagitis; I25.10 Atherosclerotic heart disease of native coronary artery without angina pectoris; Z95.5 Presence of coronary angioplasty implant and graft; Z85.528 Personal history of other malignant neoplasm of kidney; Z90.5 Acquired absence of kidney; Z87.891 Personal history of nicotine dependence; Z79.82 Long term (current) use of aspirin; Z79.84 Long term (current) use of oral hypoglycemic drugs; Z79.899 Other long term (current) drug therapy; W88.1XXA Exposure to radioactive isotopes, initial encounter
CPT/HCPCS: 88305; 45380; 45385; 45388; J2704

== ENCOUNTER → 2024-02-08 | Outpatient (CLI) | payer MEDICARE ==
[2024-02-08 12:26] LABS: African American GFR (CKD) 39 (>60 ml/min/1.73 sqM); Blood Urea Nitrogen 44 mg/dL (9-20); Non-African American GFR(CKD) 33 (>60 ml/min/1.73 sqM)
--- NOTE | 2024-02-08 14:01 | CT ---
EXAMINATION TYPE: CT abdomen pelvis wo con DATE OF EXAM: 02/08/2024 HISTORY: colitis, renal ca CT DLP: 968.1 mGycm. Automated Exposure Control for Dose Reduction was Utilized. TECHNIQUE: CT scan of the abdomen and pelvis is performed without oral or IV contrast. COMPARISON: 01/20/2022, 01/15/2020 FINDINGS: Within the limitations of a non-contrast study, the following observations are made. LUNG BASES: Basilar scarring or atelectasis. Suspect COPD and pulmonary fibrosis. Heart is enlarged. There is coronary artery dense calcification and atherosclerotic change aorta and near the aortic josselyn ve. Trace of pericardial fluid.. LIVER/GB: No significant abnormality is appreciated. PANCREAS: Atrophy of the pancreas. There is no evidence of pancreatitis.. SPLEEN: No significant abnormality is seen. ADRENALS: Nonspecific mild thickening of the left adrenal gland.. KIDNEYS: Post left nephrectomy changes with linear soft tissue attenuation likely related to residual adrenal gland which is mildly thickened. Surgical clips in the region. On axial image 28 within the left nephrectomy bed there is a 1 cm soft tissue nodule which is indeterminate but stable from prior exam of 01/15/2020 and likely benign.. Punctate cortical 1 mm right renal calculus. There is an exophyt ic hyperdense lesion measuring 3 mm right kidney. BOWEL: Large duodenal diverticulum. Small hiatal hernia. No evidence of obstruction. Mild rectal wall thickening correlate clinically. Mild induration or inflammatory change presacral region and perirec katerin region. LYMPH NODES: No greater than 1cm abdominal or pelvic lymph nodes are appreciated. OSSEOUS STRUCTURES: Multilevel hypertrophic and degenerative changes of the spine. Hypertrophic SI audelia int arthropathy and left hip arthropathy. Postsurgical change right hip.. OTHER: Ectasia of the aorta with no evidence of aneurysm. Ectasia of the common iliac arteries. 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 Moderate degenerative change. IMPRESSION: 1. Mild rectal wall thickening could be on the basis of a proctitis, correlate clinically to exclude mucosal lesion. No evidence of obstruction. There is mild inflammatory change of the presacral and pe rirenal fat suggestive of inflammation. 2. 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 3. Status post left nephrectomy. 4. There is a 3 mm indeterminate hyperdense region mid cortex right kidney for which ultrasound recom mended. 5. There is a soft tissue nodule in the nephrectomy bed which is indeterminate measuring 1 cm. Findin gs stable from 2020 and therefore likely benign.
== END | disposition home or self-care (01) ==
LOC: RADCTMAIN 10:57
PROVIDERS: ATTEND Family Medicine
DX: I72.3 Aneurysm of iliac artery (principal); K52.0 Gastroenteritis and colitis due to radiation; K21.9 Gastro-esophageal reflux disease without esophagitis; R10.811 Right upper quadrant abdominal tenderness; R19.7 Diarrhea, unspecified; Z90.5 Acquired absence of kidney
CPT/HCPCS: 74176; 82565; 84520

== ENCOUNTER → 2024-10-07 | Outpatient (CLI) | payer MEDICARE ==
[2024-10-07 19:44] LABS: Prostate Specific Antigen <0.01 ng/mL (0.000-6.500); Testosterone <10.00 ng/dL (86.98-780.10)
== END | disposition home or self-care (01) ==
LOC: LABWHC1 13:47
PROVIDERS: ATTEND Urology
DX: C61 Malignant neoplasm of prostate (principal)
CPT/HCPCS: 36415; 84153; 84403

== ENCOUNTER 2024-10-17 09:19 | Day surgery (SDC) | payer MEDICARE ==
[~2024-10-17 09:19] MED LIST changes: -DEXAMETHASONE SOD PHOSPHATE 4 MG/ML 1 ML VIAL IV ONE; -HYDROmorphone 0.5 MG/0.5 ML SYRINGE IVP PRN; -MIDAZOLAM 2 MG/2 ML VIAL IV PRN; -ONDANSETRON 4 MG/2 ML VIAL IVP ONE
[2024-10-17 09:44] VITALS: TEMP 97.3
[2024-10-17] MEDS: IV FLUID CONTINUATION 1,000 ML IV ONE ×2 (09:57→10:26)
[2024-10-17 10:02] LABS: Glucose,Whole Blood 146 mg/dL (70-110)
[2024-10-17] MEDS ORDERED: PROPOFOL 10 MG/ML 20 ML VIAL IV ONE (10:27)
[2024-10-17 11:09] VITALS: BP 117/70; PULSE 64; RESP 16
--- NOTE | 2024-10-17 11:20 | P.PCN ---
Date of Procedure: 10/17/24 Procedure(s) Performed: BRIEF HISTORY: Patient is a 83-year-old pleasant white male scheduled for an elective sigmoid as a part of evaluation of intermittent rectal bleeding. He was diagnosed with radiation proctitis and underwent an colonoscopy with argon plasma coagulation in February 2024. He had repeat flexible sigmoidoscopy while he was in [place] because of ongoing rectal bleeding in May 2024. Lately has been having bleeding almost on a daily basis. Occasionally he has some clots. History of prostate cancer for which he underwent radiation therapy in 2021. PROCEDURE PERFORMED: Flexible sigmoidoscopy with argon plasma coagulation PREOPERATIVE DIAGNOSIS: Intermittent rectal bleeding and history of radiation proctitis. IV sedation per Anesthesia. PROCEDURE: After informed consent was obtained, the patient, was brought into the endoscopy unit. IV sedation was administered by Anesthesia under continuous monitoring. Digital rectal examination was normal. Initially the Olympus CF-160 flexible video colonoscope was then inserted in the rectum, gradually advanced into the sigmoid colon without any difficulty. Careful examination was performed. Mucosa of the sigmoid colon appeared normal. In the distal rectum there was active oozing with multiple telangiectasias identified. At this time out from possible coagulation was performed and good hemostasis was achieved. The patient tolerated the procedure well. IMPRESSION: Severe radiation proctitis with active oozing noted in the distal rectum status post argon plasma coagulation as described above with good hemostasis RECOMMENDATIONS: Findings of this examination were discussed with the patient as well as his family. He was advised to be on a high-fiber diet and fiber supplements on a regular basis.. Follow-up in the office as needed.
== END 2024-10-17 11:42 | disposition home or self-care (01) ==
LOC: ORWHC2ENDO 09:19
PROVIDERS: ATTEND Internal Medicine Gastroenterology
DX: K62.7 Radiation proctitis (principal); I10 Essential (primary) hypertension; I25.10 Atherosclerotic heart disease of native coronary artery without angina pectoris; E78.5 Hyperlipidemia, unspecified; K21.9 Gastro-esophageal reflux disease without esophagitis; Z85.46 Personal history of malignant neoplasm of prostate; Z79.899 Other long term (current) drug therapy; Z95.5 Presence of coronary angioplasty implant and graft; Z90.5 Acquired absence of kidney
CPT/HCPCS: 45346; J2704; 45388